=== PATIENT | female | born 1950 | race Caucasian/White ===

== ENCOUNTER 2017-03-01 09:57 | Inpatient (IN) | payer MEDICARE, OTHER ==
[2017-03-01 11:08] LABS: #Basophils 0.1 thou/uL (0.0-0.2); #Eosinphils 0.4 thou/uL (0.0-0.7); #Monocytes 0.8 thou/uL (0.11-0.59); #Neutrophils 6.3 thou/uL (1.40-6.50); %Basophils 1.3 % (0.0-1.0); %Eosinophils 3.6 % (0.0-10.0); %Lymphocytes 28.3 % (21.0-51.0); %Monocytes 7.1 % (0.0-10.0); %Neutrophils 59.8 % (42.0-75.0); Hemoglobin 13.2 g/dL (12.0-16.0); Mean Corpuscular Hemoglobin 31.2 pg (27.0-31.0); Mean Corpuscular Volume 94.5 fl (81.0-99.0); Mean Platelet Volume 7.3 fL (7.4-10.4); Platelet Count 280 thou/uL (130-400); RBC Distribution Width 11.6 % (11.5-14.5); Red Blood Cell (RBC) Count 4.25 mill/uL (4.20-5.40); White Blood Cell (WBC) Count 10.5 thou/uL (4.8-10.8)
--- NOTE | 2017-03-01 11:08 | RAD ---
FRONTAL RADIOGRAPH CHEST: Date: 03/01/17 COMPARISON: 08/13/14. HISTORY: Chest pain, myocardial infarction. FINDINGS: There is stable prominence of the cardiac silhouette. No pneumothorax, pleural fluid, focal consolida tion, or alveolar edema. IMPRESSION: No acute findings. POS: [facility]
[2017-03-01 11:16] LABS: PTT 26.1 SEC (22.9-36.1); Prothrombin Time 13.1 SEC (12.0-14.7)
[2017-03-01 11:36] LABS: ALT (SGPT) 33 U/L (8-55); AST (SGOT) 38 U/L (5-34); Alkaline Phosphatase 55 U/L (40-150); Anion Gap 14 mmol/L (10-20); BUN (Urea Nitrogen) 28 mg/dL (9.8-20.1); Bilirubin, Total 0.4 mg/dL (0.2-1.2); CK (CPK) 111 U/L (29-168); Calc. Creatinine Clearance 0 mL/min (70-130); Calcium 10.3 mg/dL (7.8-10.44); Carbon Dioxide 22 mmol/L (23-31); Chloride 106 mmol/L (98-107); Estimated GFR-MDRD 68; Glucose 89 mg/dL (80-115); Lipase 129 U/L (8-78); Sodium 138 mmol/L (136-145)
[2017-03-01 11:48] LABS: Troponin I 0.793 ng/mL (< 0.028)
[2017-03-01] MEDS ORDERED: Enoxaparin Sodium 100 MG/ML SYRINGE ONE (12:19)
[2017-03-01] MEDS ORDERED: Nitroglycerin 2% Ointment 1 INCH/1 GM Packet ONE (12:19)
[2017-03-01] MEDS ORDERED: Mag-Al 1200 mg/1200 mg/30 ML UDCUP PO PRN (13:37)
[2017-03-01] MEDS ORDERED: Calcium Carbonate 500 MG ChewTAB PO PRN (13:37)
[2017-03-01] MEDS ORDERED: Senokot 8.6 MG TAB PO PRN (13:37)
[2017-03-01] MEDS ORDERED: Ondansetron HCl/PF 4 MG/2 ML Vial IVP PRN (13:37)
[2017-03-01] MEDS ORDERED: Nitroglycerin 0.4 MG TAB (25 Tab Bottle) PO PRN (13:37)
[2017-03-01] MEDS ORDERED: Acetaminophen 325 MG TAB PO PRN (13:37)
[2017-03-01] MEDS ORDERED: Ondansetron ODT 4 MG TAB PO PRN (13:37)
--- NOTE | 2017-03-01 13:37 | PDOC.EVN ---
Event Note - Event Note Event Note: Patient seen and examined. Note dicatated. Full code. DPOA - patient/family
[2017-03-01] MEDS ORDERED: Acetaminophen/Codeine 30-300mg Tablet PO PRN (13:40)
[2017-03-01] MEDS ORDERED: traMADol HCl 50 MG TAB PO PRN (13:40)
[2017-03-01] MEDS ORDERED: hydrALAZINE 20 MG/ML VIAL SLOW IVP PRN (13:40)
--- NOTE | 2017-03-01 13:50 | HP ---
DATE OF ADMISSION: 03/01/2017 PRIMARY CARE PHYSICIAN: Dr. Solis. PRIMARY TREASURY ANALYST: Dr. Gonzalez. CHIEF COMPLAINT: Chest discomfort. HISTORY OF PRESENT ILLNESS: The patient is a 67-year-old female with hypertension, atrial flutter status post ablation, presented to [facility] with chest discomfort. She was subsequently transferred to this facility for hospital admission. The chest discomfort started around 10:30 p.m. while she was at home. It was substernal, moderate in intensity without any radiation. She felt nauseous without any vomiting. No lightheadedness, dizziness, syncope, recent immobilization, travel, cough, shortness of breath, wheezing reported. She is compliant with metoprolol and lisinopril along with Lasix. She is not on aspirin at this time. In the emergency room at [facility], her workup was consistent with non-ST elevation OH with a troponin of 0.3 at 6:35 a.m. Her initial troponin was 0.042 with CK-MB of 1.6. She received aspirin in the emergency room. She also received a dose of Lovenox at this facility. PAST MEDICAL HISTORY: 1. Atrial flutter, status post ablation. 2. Hypertension. 3. Anxiety disorder. 4. History of atrial fibrillation in the past. PAST SURGICAL HISTORY: Ablation x2. ALLERGIES: Patient denies any drug allergies. CURRENT HOME MEDICATIONS: Lasix 40 mg daily, lisinopril 10 mg daily, meloxicam 15 mg daily, and metoprolol tartrate 12.5 mg b.i.d. SOCIAL HISTORY: Patient currently lives at home with her family. No smoking, alcohol or drug use. FAMILY HISTORY: Positive for coronary artery disease. REVIEW OF SYSTEMS: The following complete review of systems was negative, unless otherwise mentioned in the HPI or below: Constitutional: Weight loss or gain, ability to conduct usual activities. Skin: Rash, itching. Eyes: Double vision, pain. ENT/Mouth: Nose bleeding, neck stiffness, pain, tenderness. Cardiovascular: Palpitations, dyspnea on exertion, orthopnea. Respiratory: Shortness of breath, wheezing, cough, hemoptysis, fever or night sweats. Gastrointestinal: Poor appetite, abdominal pain, heartburn, nausea, vomiting, constipation, or diarrhea. Genitourinary: Urgency, frequency, dysuria, nocturia. Musculoskeletal: Pain, swelling. Neurologic/Psychiatric: Anxiety, depression. Allergy/Immunologic: Skin rash, bleeding tendency. PHYSICAL EXAMINATION: VITAL SIGNS: Shows temperature 98.7, respirations 14, pulse rate 57, blood pressure 165/78 with O2 saturation 96% on room air. GENERAL: A 67-year-old female in no apparent distress. No chest discomfort over the last 2-4 hours. HEENT: Head is atraumatic, normocephalic. Sclerae are anicteric. Moist mucous membrane, no oral lesion. NECK: Supple, no JVD appreciated. No carotid bruit. LUNGS: Clear to auscultation bilaterally. HEART: S1 and S2 present. Regular rate and rhythm. No murmurs, rubs or gallops appreciated. ABDOMEN: Soft, nontender, bowel sounds present. EXTREMITIES: Trace edema in bilateral lower extremities. SKIN: Warm and dry. LYMPH NODES: No palpable lymph nodes in the neck. PERIPHERAL VASCULAR: Radial pulses palpable bilaterally. MUSCULOSKELETAL: No joint swelling or tenderness. LABORATORY DATA AND X-RAY FINDINGS: 1. Troponins as discussed above. Sodium was 141, potassium 4.3, chloride 103, bicarbonate 28, BUN 27, creatinine 1.0. 2. Repeat troponin was 0.793 with CK-MB 8.0. 3. EKG by my review showed ST-T wave changes in the lateral leads. 4. Chest x-ray by my review was negative for infiltrate. IMPRESSION AND PLAN: 1. Non-ST elevation myocardial infarction. Telemetry monitoring, s/p Lovenox. Cardiology consult. NPO past MN. Vitals Q4h. Aspirin, Betablockers, ACEI and Statins 2. Hypertension. Will cont Lisinopril/Metoprolol 3. Anxiety disorder. 4. Chronic kidney disease stage 2. 5. History of atrial flutter, status post ablation. 6. History of atrial fibrillation in the past. Plan of care was discussed with the patient and the family in detail, they stated understanding The patient will require 2-3 days for stabilization. MTDD
[2017-03-01] MEDS ORDERED: Communication Order-Pharmacy FS SCH ×2 (17:45→18:15)
--- NOTE | 2017-03-01 18:19 | CON ---
DATE OF CONSULTATION: 03/01/2017 REASON FOR CONSULTATION: Elevated troponin. PRIMARY STUDENT DEVELOPMENT COORDINATOR: Pam Gonzalez M.D. HISTORY OF PRESENT ILLNESS: Ms. Clay is a pleasant 67-year-old woman who has been seen and evaluat ed by Dr. Pam Gonzalez in the past. She recently underwent atrial flutter ablation and was schedule d to see Dr. Nolen. She has had a history of anxiety disorder and hypertension. She awoke from sleep , describing chest pressure and shortness of breath. The pressure was described as band-like around her upper abdomen. No other ameliorating, exacerbating, or precipitating factors present. She has n o previous history of underlying coronary disease. PAST MEDICAL HISTORY: As above. ALLERGIES: None. MEDICATIONS: Lasix, lisinopril, meloxicam, metoprolol. SOCIAL HISTORY: No current tobacco or alcohol use. FAMILY HISTORY: Negative for CAD. REVIEW OF SYSTEMS: Ten-point review of systems is reviewed and is otherwise negative. PHYSICAL EXAMINATION: GENERAL: Patient is a pleasant female who is in no acute distress. The patient appears her stated a ge. VITAL SIGNS: Blood pressure 110/70, pulse 80, respirations 20. NEUROLOGIC: The patient is alert and oriented times 3 with no focal neurologic deficits. HEENT: Sclerae without icterus. Mouth has moist mucous membranes with normal pallor. NECK: No JVD. Carotid upstroke brisk. No bruits bilaterally. LUNGS: Clear to auscultation with unlabored respirations. BACK: No scoliosis or kyphosis. CARDIAC: Regular rate and rhythm with normal S1 and S2. No S3 or S4 noted. No significant rubs, mu rmurs, thrills, or gallops noted throughout the precordium. PMI is not displaced. There is no nora ternal heave. ABDOMEN: Soft, nontender, nondistended. No peritoneal signs present. No hepatosplenomegaly. No ab normal striae. EXTREMITIES: 2+ femoral and 2+ dorsalis pedis pulses. No cyanosis, clubbing, or edema. SKIN: No gross abnormalities. PERTINENT LABORATORY DATA AND IMAGING DATA: Hemoglobin 13.2, CK-MB of 8.0 with a peak troponin 0.793 . EKG: Normal sinus rhythm with nonspecific ST-T wave changes. IMPRESSION: Elevated troponin. RECOMMENDATIONS: Symptoms suggest unstable angina. Her CK-MB is elevated as well as her troponin. At this point, would recommend coronary angiography with possible PCI. I discussed the procedure in full detail with Ms. Clay. The risks of the procedure include but are not limited to the following : , stroke, RI, need for emergency surgery, loss of limb, bleeding, and infection, as well as a reaction to the dye causing kidney failure and needing long-term dialysis. I also discussed the ris ks of PCI to include all of the above including coronary dissection and perforation in addition to ac burns paiute stent thrombosis and restenosis. All questions about the procedure were answered. Given the abo ve, the patient agreed to proceed with coronary angiography and possible PCI. All questions were ans wered. I have discussed the case with Dr. Pam Gonzalez. She was given a dose of Lovenox and prepar e for angiography in a.m.
[2017-03-01] MEDS: Famotidine 20 MG TAB PO SCH (20:40)
[2017-03-01] MEDS: Lisinopril 5 MG TAB PO SCH (20:40)
[2017-03-01] MEDS: Docusate 100 MG CAP PO SCH (20:40)
[2017-03-01] MEDS: Metoprolol Tartrate 25 MG TAB PO SCH (20:41)
[2017-03-01 21:23] VITALS: BMI 39.8
[2017-03-02] MEDS: Sodium Chloride 0.9% 1,000 ML IV SCH ×2 (05:17→16:09)
[2017-03-02] MEDS: Famotidine 20 MG TAB PO SCH ×2 (05:18→20:27)
[2017-03-02] MEDS: Aspirin 325 MG TAB PO SCH (05:18)
[2017-03-02 05:23] LABS: #Basophils 0.1 thou/uL (0.0-0.2); #Eosinphils 0.4 thou/uL (0.0-0.7); #Lymphocytes 2.4 thou/uL (1.20-3.40); #Monocytes 0.7 thou/uL (0.11-0.59); #Neutrophils 4.3 thou/uL (1.40-6.50); %Basophils 1.6 % (0.0-1.0); %Eosinophils 5.3 % (0.0-10.0); %Lymphocytes 30.1 % (21.0-51.0); %Monocytes 8.8 % (0.0-10.0); %Neutrophils 54.2 % (42.0-75.0); Hemoglobin 12.5 g/dL (12.0-16.0); Mean Corpuscular HGB CONC 33.1 g/dL (32.0-36.0); Mean Corpuscular Hemoglobin 31.4 pg (27.0-31.0); Mean Corpuscular Volume 94.8 fl (81.0-99.0); Mean Platelet Volume 7.8 fL (7.4-10.4); Platelet Count 261 thou/uL (130-400); RBC Distribution Width 11.5 % (11.5-14.5); Red Blood Cell (RBC) Count 3.99 mill/uL (4.20-5.40); White Blood Cell (WBC) Count 7.9 thou/uL (4.8-10.8)
[2017-03-02] MEDS ORDERED: Diazepam 5 MG TAB PO SCH (06:00)
[2017-03-02 06:01] LABS: Albumin 3.9 g/dL (3.4-4.8); Anion Gap 11 mmol/L (10-20); BUN (Urea Nitrogen) 25 mg/dL (9.8-20.1); BUN/Creatinine Ratio 28.09; Calc. Creatinine Clearance 105 mL/min (70-130); Calcium 9.5 mg/dL (7.8-10.44); Carbon Dioxide 26 mmol/L (23-31); Cardiac Risk 3.5 (Less than 4.5); Chloride 105 mmol/L (98-107); Cholesterol 181 mg/dl (< 200 Desired); Estimated GFR-MDRD 64; Glucose 96 mg/dL (80-115); HDL Cholesterol 51 mg/dL (>60 Neg Risk); LDL Cholesterol, Calculated 95 mg/dL; Phosphorus 3.6 mg/dL (2.3-4.7); Potassium 4.4 mmol/L (3.5-5.1); Sodium 138 mmol/L (136-145); Triglycerides 174 mg/dL (Less than 150)
[2017-03-02 06:21] LABS: Troponin I 0.779 ng/mL (< 0.028)
[2017-03-02] MEDS: Metoprolol Tartrate 25 MG TAB PO SCH ×2 (09:00→20:27)
[2017-03-02] MEDS ORDERED: Fentanyl 100 MCG/2 ML VIAL ONE (09:18)
[2017-03-02] MEDS ORDERED: Midazolam HCl 2 mg/2 ml Vial ONE (09:18)
[2017-03-02] MEDS ORDERED: Iopamidol 370 76% 100 ML VIAL ONE (09:38)
[2017-03-02] MEDS ORDERED: Nitroglycerin 100MG/250ML BOT 250 ML ONE (09:41)
[2017-03-02] MEDS ORDERED: Nitroglycerin 0.4 MG TAB (25 Tab Bottle) SL PRN (10:12)
[2017-03-02] MEDS ORDERED: traMADol HCl 50 MG TAB PO PRN (10:12)
[2017-03-02] MEDS ORDERED: Acetaminophen/Codeine 30-300mg Tablet PO PRN ×2 (10:12)
[2017-03-02] MEDS ORDERED: Sodium Chloride 0.9% 200 ML IV SCH (10:15)
--- NOTE | 2017-03-02 12:34 | CON ---
DATE OF CONSULTATION: 03/02/2017 REASON FOR CONSULTATION: Narrow complex tachycardia. PHYSICIAN REQUESTING CONSULTATION: Dr. Pam Gonzalez HISTORY OF PRESENT ILLNESS: Marianna Clay is a 67-year-old woman. She is known to the EP Service wit h a remote history of atrial fibrillation and mild to moderate aortic stenosis. She underwent ablati on of her atrial fibrillation several years ago, at least 3. She did require 2 ablative procedures t o be rid of the atrial fibrillation. Since that time she has recently developed tachy palpitations o n a daily basis. She had a monitor placed showing a narrow complex tachycardia at 150 beats a minute . I was asked to see her because of the SVT. This does correlate with symptoms. She underwent hear t catheterization today showing normal coronary anatomy. She does have moderate aortic stenosis, but non-critical. FAMILY HISTORY: Significant for coronary artery disease, hypertension, diabetes. SOCIAL HISTORY: The patient does not smoke, drink or use illicit drugs. REVIEW OF SYSTEMS: CONSTITUTIONAL: No fever, chills, night sweats, or other constitutional findings. HEENT: No change in vision or hearing. NEUROLOGIC: No TIAs, strokes or seizures. PULMONARY: No reactive airway disease, obstructive lung disease, or recurrent pneumonias. GASTROINTESTINAL: No acid peptic disease, melena, or hematochezia. GENITOURINARY: No frequency or dysuria. CARDIOVASCULAR: No claudication. ENDOCRINE: No diabetes or thyroid dysfunction. HEMATOLOGIC: No history of blood dyscrasias. MUSCULOSKELETAL: No arthritis, arthralgias or gout. PSYCHIATRIC: No depression or anxiety. DERMATOLOGIC: No rashes or skin cancer. AUTOIMMUNE: No autoimmune disease. PHYSICAL EXAMINATION: HEENT: Extraocular muscles are intact. Oropharynx is moist. NECK: Supple, no JVD. HEART: Demonstrates a regular rate. There is a 1/6 systolic ejection murmur. LUNGS: Clear. ABDOMEN: Soft. EXTREMITIES: Without edema. SKIN: Warm and dry. NEUROLOGIC EXAM: Nonfocal. VITAL SIGNS: Blood pressure is 130/20, pulse is 88. LABORATORY AND X-RAY FINDINGS: Electrocardiogram demonstrates sinus rhythm, IVCD, but no other abnor malities. MEDICAL DECISION MAKING: I had a 10 minute discussion with Ms. Clay and her family. We talked abo ut all treatment options, her tachycardia is clearly regular. However, with her history of atrial fi brillation and previous ablations it is more likely to be an atrial tachycardia or an atypical flutte r then AV sergio reentry. Because of this, I would not recommend proceeding with an ablation today si nce complex mapping is not available and 3D mapping system is not available. I would arrange for it to be done tomorrow as an inpatient. The patient understands risks, benefits, and alternatives. IMPRESSION: Narrow complex tachycardia, probably in a tach or an atypical flutter, although I cannot exclude AVNRT or AVRT. RECOMMENDATIONS: Proceed with ablation with 3D mapping tomorrow when available.
[2017-03-02 16:01] LABS: #Basophils 0.1 thou/uL (0.0-0.2); #Eosinphils 0.3 thou/uL (0.0-0.7); #Lymphocytes 2.1 thou/uL (1.20-3.40); #Monocytes 0.5 thou/uL (0.11-0.59); %Basophils 1.1 % (0.0-1.0); %Eosinophils 3.8 % (0.0-10.0); %Lymphocytes 30.1 % (21.0-51.0); %Monocytes 6.8 % (0.0-10.0); %Neutrophils 58.2 % (42.0-75.0); Hemoglobin 12.5 g/dL (12.0-16.0); Mean Corpuscular HGB CONC 32.5 g/dL (32.0-36.0); Mean Corpuscular Hemoglobin 30.9 pg (27.0-31.0); Mean Corpuscular Volume 95.2 fl (81.0-99.0); Mean Platelet Volume 7.1 fL (7.4-10.4); Platelet Count 271 thou/uL (130-400); RBC Distribution Width 11.4 % (11.5-14.5); Red Blood Cell (RBC) Count 4.05 mill/uL (4.20-5.40); White Blood Cell (WBC) Count 6.9 thou/uL (4.8-10.8)
[2017-03-02 16:07] LABS: PTT 24.7 SEC (22.9-36.1); Prothrombin Time 12.9 SEC (12.0-14.7)
[2017-03-02] MEDS: Lisinopril 5 MG TAB PO SCH ×2 (16:08→20:27)
[2017-03-02] MEDS: Docusate 100 MG CAP PO SCH ×2 (16:08→20:27)
[2017-03-02 16:22] LABS: Anion Gap 11 mmol/L (10-20); BUN (Urea Nitrogen) 17 mg/dL (9.8-20.1); Calc. Creatinine Clearance 123 mL/min (70-130); Calcium 9.2 mg/dL (7.8-10.44); Carbon Dioxide 23 mmol/L (23-31); Chloride 108 mmol/L (98-107); Estimated GFR-MDRD 76; Glucose 95 mg/dL (80-115); Potassium 4.2 mmol/L (3.5-5.1); Sodium 138 mmol/L (136-145)
--- NOTE | 2017-03-02 18:57 | PDOC.PN ---
- Subjective Encounter Start Date: 03/02/17 Encounter Start Time: 15:30 Patient seen and examined. No new complaints. s/p Cath - negative. No overnight events - Objective Resuscitation Status: Resuscitation Status FULL:Full Resuscitation MAR Reviewed: Yes Vital Signs & Weight: Vital Signs (12 hours) Temp Pulse Pulse Pulse Resp BP BP 03/02/17 15:18 98.3 F 61 18 03/02/17 14:39 62 66 176/81 H 03/02/17 12:30 97.8 F 63 18 03/02/17 10:31 61 18 124/59 L 03/02/17 08:03 97.8 F 63 18 BP BP BP Pulse Ox Pulse Ox Pulse Ox 03/02/17 15:18 179/91 H 96 03/02/17 14:39 184/84 H 96 97 03/02/17 12:30 146/65 H 95 03/02/17 10:31 124/59 L 97 03/02/17 08:03 97 I&O: 03/01/17 03/02/17 03/03/17 06:59 06:59 06:59 Intake Total 1700 Balance 1700 Result Diagrams: 03/02/17 15:51 03/02/17 15:51 EKG Reviewed by me: Yes (Tele SR) Phys Exam - Physical Examination Constitutional: NAD Respiratory: no wheezing, no rhonchi Cardiovascular: RRR, no rub Gastrointestinal: soft, non-tender, positive bowel sounds Musculoskeletal: no edema Neurological: moves all 4 limbs Psychiatric: A&O x 3 Dx/Plan - Plan DVT proph w/SCDs IMPRESSION: 1. SVT (Pt had SVT on recent Event monitor) 2. Elevated troponins due to #1 (NSTEMI ruled out) 2. Hypertension. on Lisinopril/Metoprolol 3. Anxiety disorder. 4. Chronic kidney disease stage 2/History of atrial flutter, status post ablation x 2/History of atrial fibrillation in the past/HLD/Obesity BMI 39.8 PLAN * EP consulted * Ablation in AM * DC Cardiac Rehab * Cont to monitor * Cont current meds as below * AM labs Review of Systems - Review of Systems Respiratory: negative: Cough, Dry, Shortness of Breath, Hemoptysis, SOB with Excertion, Pleuritic Pain, Sputum, Wheezing Cardiovascular: negative: chest pain, palpitations, orthopnea, paroxysmal nocturnal dyspnea, edema, light headedness Gastrointestinal: negative: Nausea, Vomiting, Abdominal Pain, Diarrhea, Constipation, Melena, Hematochezia - Medications/Allergies Allergies/Adverse Reactions: Allergies Allergy/AdvReac Type Severity Reaction Status Date / Time No Known Allergies Allergy Verified 03/01/17 21:22 Medications: Current Medications Acetaminophen (Tylenol) 650 mg PO Q4H PRN PRN Reason: Headache/Fever or Pain Acetaminophen/Codeine Phosphate (Tylenol #3) 1 tab PO Q4H PRN PRN Reason: Mild Pain (1-3) Acetaminophen/Codeine Phosphate (Tylenol #3) 2 tab PO Q4H PRN PRN Reason: Moderate Pain (4-6) Al Hydroxide/Mg Hydroxide (Maalox) 30 ml PO Q6H PRN PRN Reason: Heartburn or Indigestion Aspirin (Aspirin) 325 mg PO DAILY [facility] Last Admin: 03/02/17 05:18 Dose: 325 mg Calcium Carbonate (Tums) 1,000 mg PO Q4H PRN PRN Reason: Heartburn or Indigestion Diazepam (Valium) 5 mg PO WILLCALL [facility] Stop: 03/02/17 20:00 Last Admin: 03/02/17 08:29 Dose: 5 mg Docusate Sodium (Colace) 100 mg PO BID [facility] Last Admin: 03/02/17 16:08 Dose: 100 mg Famotidine (Pepcid) 20 mg PO BID [facility] Last Admin: 03/02/17 05:18 Dose: 20 mg Hydralazine HCl (Apresoline) 10 mg SLOW IVP Q4H PRN PRN Reason: SBP Greater Than 180 Lisinopril (Zestril) 5 mg PO BID [facility] Last Admin: 03/02/17 16:08 Dose: 5 mg Metoprolol Tartrate (Lopressor) 12.5 mg PO BID [facility] Last Admin: 03/02/17 09:00 Dose: Not Given Nitroglycerin (Nitrostat) 0.4 mg SL Q5MIN PRN PRN Reason: Chest Pain Ondansetron HCl (Zofran Odt) 4 mg PO Q6H PRN PRN Reason: Nausea/Vomiting Ondansetron HCl (Zofran) 4 mg IVP Q6H PRN PRN Reason: Nausea/Vomiting Senna (Senokot) 2 tab PO HSPRN PRN PRN Reason: Constipation Sodium Chloride (Flush - Normal Saline) 10 ml IVF PRN PRN PRN Reason: Saline Flush Tramadol HCl (Ultram) 50 mg PO Q6H PRN PRN Reason: Moderate Pain (4-6) Last Admin: 03/02/17 12:10 Dose: 50 mg
[2017-03-03 05:04] LABS: #Basophils 0.1 thou/uL (0.0-0.2); #Eosinphils 0.3 thou/uL (0.0-0.7); #Lymphocytes 2.5 thou/uL (1.20-3.40); #Monocytes 0.5 thou/uL (0.11-0.59); #Neutrophils 3.9 thou/uL (1.40-6.50); %Basophils 1.5 % (0.0-1.0); %Eosinophils 4.1 % (0.0-10.0); %Lymphocytes 34.4 % (21.0-51.0); %Monocytes 7.3 % (0.0-10.0); %Neutrophils 52.7 % (42.0-75.0); Hemoglobin 12.3 g/dL (12.0-16.0); Mean Corpuscular HGB CONC 32.9 g/dL (32.0-36.0); Mean Corpuscular Hemoglobin 31.3 pg (27.0-31.0); Mean Corpuscular Volume 95.2 fl (81.0-99.0); Mean Platelet Volume 7.5 fL (7.4-10.4); Platelet Count 261 thou/uL (130-400); RBC Distribution Width 11.6 % (11.5-14.5); Red Blood Cell (RBC) Count 3.92 mill/uL (4.20-5.40); White Blood Cell (WBC) Count 7.4 thou/uL (4.8-10.8)
[2017-03-03 05:07] LABS: Anion Gap 10 mmol/L (10-20); BUN (Urea Nitrogen) 15 mg/dL (9.8-20.1); Calc. Creatinine Clearance 119 mL/min (70-130); Calcium 9.2 mg/dL (7.8-10.44); Carbon Dioxide 27 mmol/L (23-31); Chloride 105 mmol/L (98-107); Estimated GFR-MDRD 74; Glucose 99 mg/dL (80-115); Magnesium 1.9 mg/dL (1.6-2.6); Potassium 4.2 mmol/L (3.5-5.1); Sodium 138 mmol/L (136-145)
[2017-03-03] MEDS: Metoprolol Tartrate 25 MG TAB PO SCH ×2 (05:43→21:13)
[2017-03-03] MEDS ORDERED: Heparin 10,000 UNITS/1 ML VIAL ONE ×2 (09:34→10:19)
[2017-03-03] MEDS ORDERED: Fentanyl 100 MCG/2 ML VIAL ONE (09:52)
[2017-03-03] MEDS ORDERED: Midazolam HCl 2 mg/2 ml Vial ONE (09:52)
[2017-03-03] MEDS ORDERED: Propofol 500 MG/50 ML VIAL ONE (10:00)
[2017-03-03] MEDS ORDERED: Protamine Sulfate 50 MG/5 ML VIAL ONE ×2 (10:19→16:56)
[2017-03-03] MEDS ORDERED: Furosemide 40 MG/4 ML VIAL ONE (10:19)
[2017-03-03] MEDS ORDERED: Phenylephrine 10 MG/NS 250 ML 250 ML ONE (10:19)
[2017-03-03] MEDS ORDERED: Isoproterenol 0.2 MG/1 ML AMP ONE (11:26)
[2017-03-03] MEDS ORDERED: HYDROmorphone 2 MG/ML VIAL SLOW IVP PRN (12:21)
[2017-03-03] MEDS ORDERED: Promethazine HCl 25 MG/ML VIAL SLOW IVP PRN (12:21)
[2017-03-03] MEDS ORDERED: Morphine Sulfate 2 MG/ML SYRINGE SLOW IVP PRN (12:21)
[2017-03-03] MEDS ORDERED: Ondansetron HCl/PF 4 MG/2 ML Vial IVP PRN ×2 (12:21→13:48)
[2017-03-03] MEDS ORDERED: Meperidine HCl/PF 25 MG/ML VIAL SLOW IVP PRN (12:21)
--- NOTE | 2017-03-03 12:24 | OP ---
PROCEDURE NOTE PROCEDURE: Electrophysiologic study, radiofrequency ablation for SVT. PREOPERATIVE DIAGNOSES: Supraventricular tachycardia and atrial fibrillation. PROCEDURE DETAILS: The patient came to the EP lab in the postabsorptive state. Informed consent was obtained. A timeout was called. The patient was sedated by a member of the Anesthesia staff. Once patient was adequately sedated, the right and left femoral regions were prepped and draped in the [facility] sterile fashion. Using modified Seldinger technique and with ultrasound access, access was obtai keith x2 in the right femoral vein and x1 in the left femoral vein and x1 in the right internal jugular vein. A 20-pole duo-deca catheter was advanced in the right internal jugular vein and placed with t he distal 10 poles in the coronary sinus for left atrial pacing and recording, and a 10-Stateless intrac ardiac echo catheter was advanced in the left femoral vein and placed into the right atrium for intra operative imaging and guidance. Pacing in the ventricle demonstrated no evidence of VA conduction, a nd therefore, given her history of atrial fibrillation, the clinical arrhythmia was felt to be either atrial tachycardia or atypical atrial flutter due to post RF ablation. As such, transseptal punctur e x2 was performed and a 10-pole circular mapping catheter was advanced into the left atrium as well as an ablation catheter. The ablation catheter was an STSF Carto catheter. A 3-dimensional geometry was generated with the Carto system, which included voltage mapping. It appeared that the left comm on pulmonary vein, which included a left upper and left lower pulmonary veins, were completely isolat ed over the posterior wall, appeared to have recovered from the prior ablation, as did the right uppe r pulmonary vein and the right lower pulmonary vein; therefore, the pulmonary veins were re-isolated on the right side with the right upper pulmonary vein ultimately re-isolating in the posterior marva and the right lower pulmonary vein ultimately re-isolating in the anterior aspect of the right infer ior pulmonary vein. Following this, radiofrequency ablation was delivered in the area of the posteri or wall to re-isolate the posterior wall as well as some areas of fractionation near the ridge betwee n the left upper pulmonary vein and the left atrial appendage. Isoproterenol bolus was given at 5 mc g given her history of aortic stenosis and no arrhythmias could be elicited. Following this, pacing at rapid rates from the coronary sinus and left atrial appendage and from the right atrium down to a cycle length of approximately 200 milliseconds failed to induce any sustained atrial arrhythmias with exception of atrial fibrillation, which was induced. The patient was cardioverted from atrial fibri llation, and therefore, because of lack of inducibility of any sustained atrial arrhythmias and succe ss in re-isolation of the pulmonary veins, the catheters were withdrawn and protamine was given. The HV interval was 46 milliseconds. The catheters were removed. Examination of the heart demonstrated no pericardial effusion. Sheaths were removed and hemostasis was obtained with manual pressure. Th e patient was awoken from anesthetic without any difficulty. POSTOPERATIVE DIAGNOSES: Supraventricular tachycardia and atrial fibrillation. PROCEDURE PERFORMED: Pulmonary vein isolation, drug infusion, 3-dimensional electro-anatomical mappi ng, CS and LA recording, LV pacing and recording. Additional ablation for atrial fibrillation and in duction attempt, intracardiac echo, and transseptal puncture. CONCLUSIONS: 1. Re-isolation of right-sided upper and lower pulmonary veins. 2. Prior left-sided pulmonary veins continue to be isolated. 3. Re-isolation of the posterior wall. 4. No inducible sustained atrial tachycardia or atrial flutter. 5. Easily inducible atrial fibrillation with aggressive atrial pacing. RECOMMENDATIONS: The patient will be at bed rest. She will take Eliquis for at least 3 months and f raphaellow up with Electrophysiology after that.
[2017-03-03] MEDS ORDERED: diphenhydrAMINE 25 MG CAP PO PRN (13:48)
[2017-03-03] MEDS ORDERED: Nitroglycerin 0.4 MG TAB (25 Tab Bottle) SL PRN (13:48)
[2017-03-03] MEDS ORDERED: traMADol HCl 50 MG TAB PO PRN (13:48)
[2017-03-03] MEDS ORDERED: Mag-Al 1200 mg/1200 mg/30 ML UDCUP PO PRN (13:48)
[2017-03-03] MEDS ORDERED: Silver Sulfadiazine 1% Cream 50 GM JAR TOP PRN (13:48)
[2017-03-03] MEDS ORDERED: Acetaminophen 325 MG TAB PO PRN (13:48)
[2017-03-03] MEDS ORDERED: Bisacodyl 5 MG TAB PO PRN (13:48)
[2017-03-03] MEDS ORDERED: Temazepam 15 MG CAP PO PRN (13:48)
[2017-03-03] MEDS ORDERED: Bisacodyl 10 MG SUPP PR PRN (13:48)
[2017-03-03] MEDS: Lisinopril 5 MG TAB PO SCH ×2 (13:55→21:13)
[2017-03-03] MEDS: Famotidine 20 MG TAB PO SCH ×2 (13:56→21:13)
[2017-03-03] MEDS: Aspirin 325 MG TAB PO SCH (13:58)
[2017-03-03] MEDS: Docusate 100 MG CAP PO SCH ×2 (13:59→21:13)
[2017-03-03] MEDS ORDERED: Ondansetron HCl/PF 4 MG/2 ML Vial ONE (16:56)
[2017-03-03] MEDS ORDERED: PHENYLEPHRINE-NS 100 MCG/ML 10 ML SYRINGE ONE (16:56)
[2017-03-03] MEDS ORDERED: Glycopyrrolate 0.2 MG/ML 5 ML SYRINGE ONE (16:56)
[2017-03-03] MEDS ORDERED: Dexamethasone 20 MG/5 ML VIAL ONE (16:56)
[2017-03-03] MEDS ORDERED: PROPOFOL 200 MG/20 ML VIAL ONE (16:56)
[2017-03-03] MEDS ORDERED: Heparin 30,000 units/30 ml VIAL ONE (16:56)
--- NOTE | 2017-03-03 21:33 | PDOC.PN ---
- Subjective Encounter Start Date: 03/03/17 Encounter Start Time: 17:30 Patient seen and examined. No new complaints. No overnight events. s/p Ablation - Objective Resuscitation Status: Resuscitation Status FULL:Full Resuscitation MAR Reviewed: Yes Vital Signs & Weight: Vital Signs (12 hours) Temp Pulse Resp BP BP Pulse Ox 03/03/17 21:13 55 L 144/76 H 03/03/17 13:55 55 L 144/76 H 03/03/17 13:54 98.0 F 61 18 132/71 95 03/03/17 13:40 98 F 55 L 16 95 03/03/17 13:20 98.2 F 66 16 131/72 131/72 95 Weight Weight 230 lb 1.6 oz I&O: 03/02/17 03/03/17 03/04/17 06:59 06:59 06:59 Intake Total 2060 240 Output Total 800 1100 Balance 1260 -860 Result Diagrams: 03/03/17 04:19 03/03/17 04:19 Phys Exam - Physical Examination Constitutional: NAD Respiratory: no wheezing, no rhonchi Cardiovascular: RRR, no rub Gastrointestinal: soft, non-tender, positive bowel sounds Musculoskeletal: no edema Neurological: moves all 4 limbs Dx/Plan - Plan IMPRESSION: 1. SVT/Afib (Pt had SVT on recent Event monitor) 2. Elevated troponins due to #1 (NSTEMI ruled out) 2. Hypertension. on Lisinopril/Metoprolol 3. Anxiety disorder. 4. Chronic kidney disease stage 2/History of atrial flutter, status post ablation x 2/History of atrial fibrillation in the past/HLD/Obesity BMI 39.8 PLAN * s/p ablation * Start Eliquis per EP recommendation for 3 weeks - Risk discussed - Patient stated understanding * Cont to monitor * Cont current meds as below * DC in AM if ok with Cardio/EP Review of Systems - Review of Systems Respiratory: negative: Cough, Dry, Shortness of Breath, Hemoptysis, SOB with Excertion, Pleuritic Pain, Sputum, Wheezing Cardiovascular: negative: chest pain, palpitations, orthopnea, paroxysmal nocturnal dyspnea, edema, light headedness - Medications/Allergies Allergies/Adverse Reactions: Allergies Allergy/AdvReac Type Severity Reaction Status Date / Time No Known Allergies Allergy Verified 03/01/17 21:22 Medications: Current Medications Acetaminophen (Tylenol) 650 mg PO Q4H PRN PRN Reason: Mild Pain 1-3 Last Admin: 03/03/17 21:14 Dose: 650 mg Acetaminophen/Codeine Phosphate (Tylenol #3) 1 tab PO Q4H PRN PRN Reason: Mild Pain (1-3) Acetaminophen/Codeine Phosphate (Tylenol #3) 2 tab PO Q4H PRN PRN Reason: Moderate Pain (4-6) Al Hydroxide/Mg Hydroxide (Maalox) 15 ml PO Q4H PRN PRN Reason: Heartburn or Indigestion Albuterol/Ipratropium (Duoneb) 3 ml NEB [id number] PRN PRN Reason: SOB &/or Wheezing Aspirin (Aspirin) 325 mg PO DAILY [facility] Last Admin: 03/03/17 13:58 Dose: 325 mg Bisacodyl (Dulcolax) 5 mg PO DAILYPRN PRN PRN Reason: CONSTIAPT Last Admin: 03/03/17 21:13 Dose: 5 mg Bisacodyl (Dulcolax) 10 mg MO DAILYPRN PRN PRN Reason: Constipation Calcium Carbonate (Tums) 1,000 mg PO Q4H PRN PRN Reason: Heartburn or Indigestion Diphenhydramine HCl (Benadryl) 25 mg PO Q6H PRN PRN Reason: Itching Docusate Sodium (Colace) 100 mg PO BID [facility] Last Admin: 03/03/17 21:13 Dose: 100 mg Famotidine (Pepcid) 20 mg PO BID [facility] Last Admin: 03/03/17 21:13 Dose: 20 mg Hydralazine HCl (Apresoline) 10 mg SLOW IVP Q4H PRN PRN Reason: SBP Greater Than 180 Lisinopril (Zestril) 5 mg PO BID [facility] Last Admin: 03/03/17 21:13 Dose: 5 mg Metoprolol Tartrate (Lopressor) 12.5 mg PO BID [facility] Last Admin: 03/03/17 21:13 Dose: 12.5 mg Nitroglycerin (Nitrostat) 0.4 mg SL Q5MIN PRN PRN Reason: Chest Pain Ondansetron HCl (Zofran Odt) 4 mg PO Q6H PRN PRN Reason: Nausea/Vomiting Ondansetron HCl (Zofran) 4 mg IVP Q6H PRN PRN Reason: Nausea/Vomiting Senna (Senokot) 2 tab PO HSPRN PRN PRN Reason: Constipation Silver Sulfadiazine (Silvadene) 0 gm TOP Q12H PRN PRN Reason: Rash/Topical Irritation Sodium Chloride (Flush - Normal Saline) 10 ml IVF PRN PRN PRN Reason: Saline Flush Temazepam (Restoril) 15 mg PO HSPRN PRN PRN Reason: Insomnia Tramadol HCl (Ultram) 50 mg PO Q4H PRN PRN Reason: FOR MODERATE PAIN 4-6
[2017-03-04 05:44] LABS: #Basophils 0.1 thou/uL (0.0-0.2); #Eosinphils 0.1 thou/uL (0.0-0.7); #Lymphocytes 2.4 thou/uL (1.20-3.40); #Monocytes 0.7 thou/uL (0.11-0.59); #Neutrophils 7.8 thou/uL (1.40-6.50); %Basophils 0.5 % (0.0-1.0); %Eosinophils 0.5 % (0.0-10.0); %Monocytes 6.1 % (0.0-10.0); %Neutrophils 70.9 % (42.0-75.0); Hemoglobin 11.9 g/dL (12.0-16.0); Mean Corpuscular HGB CONC 34.4 g/dL (32.0-36.0); Mean Corpuscular Hemoglobin 32.6 pg (27.0-31.0); Mean Corpuscular Volume 94.8 fl (81.0-99.0); Mean Platelet Volume 7.6 fL (7.4-10.4); Platelet Count 264 thou/uL (130-400); RBC Distribution Width 11.3 % (11.5-14.5); Red Blood Cell (RBC) Count 3.65 mill/uL (4.20-5.40)
[2017-03-04 05:55] LABS: Anion Gap 9 mmol/L (10-20); BUN (Urea Nitrogen) 13 mg/dL (9.8-20.1); Calc. Creatinine Clearance 113 mL/min (70-130); Carbon Dioxide 25 mmol/L (23-31); Chloride 108 mmol/L (98-107); Estimated GFR-MDRD 71; Glucose 115 mg/dL (80-115); Potassium 4.2 mmol/L (3.5-5.1); Sodium 138 mmol/L (136-145)
[2017-03-04] MEDS: Aspirin 325 MG TAB PO SCH (08:23)
[2017-03-04] MEDS: Docusate 100 MG CAP PO SCH (08:23)
[2017-03-04] MEDS: Metoprolol Tartrate 25 MG TAB PO SCH (08:23)
[2017-03-04] MEDS: Famotidine 20 MG TAB PO SCH (08:23)
[2017-03-04] MEDS: Lisinopril 5 MG TAB PO SCH (08:24)
[2017-03-04] MEDS ORDERED: Apixaban 5 MG TAB PO SCH (09:00)
--- NOTE | 2017-03-04 11:19 | PDOC.PN ---
- Subjective Encounter Start Date: 03/04/17 Encounter Start Time: 07:30 -: old records requested/rev Patient seen and examined. No new complaints. No overnight events - Objective Resuscitation Status: Resuscitation Status FULL:Full Resuscitation MAR Reviewed: Yes Vital Signs & Weight: Vital Signs (12 hours) Temp Pulse Resp BP BP Pulse Ox 03/04/17 08:24 57 L 126/67 03/04/17 07:25 97.5 F L 57 L 18 95 03/04/17 07:16 95 03/04/17 07:12 97.5 F L 57 L 18 126/67 95 03/04/17 04:10 94 L 03/04/17 04:00 97.8 F 61 20 121/60 96 03/04/17 00:00 98.7 F 62 18 127/63 94 L Weight Weight 227 lb I&O: 03/03/17 03/04/17 03/05/17 06:59 06:59 06:59 Intake Total 2060 720 Output Total 800 2100 Balance 1260 -1380 Result Diagrams: 03/04/17 05:26 03/04/17 05:26 EKG Reviewed by me: Yes Phys Exam - Physical Examination Constitutional: NAD HEENT: PERRLA, moist MMs, sclera anicteric Neck: no JVD, supple Respiratory: no wheezing, no rales, no rhonchi Cardiovascular: RRR, no significant murmur, no rub Gastrointestinal: soft, non-tender, no distention, positive bowel sounds Musculoskeletal: no edema, pulses present Neurological: non-focal, normal sensation Psychiatric: normal affect, A&O x 3 Skin: no rash, normal turgor Dx/Plan (1) Non-ST elevation myocardial infarction (NSTEMI), type 2 Code(s): I21.A1 - MYOCARDIAL INFARCTION TYPE 2 Status: Acute (2) S/P radiofrequency ablation operation for arrhythmia Code(s): Z98.890 - OTHER SPECIFIED POSTPROCEDURAL STATES; Z86.79 - PERSONAL HISTORY OF OTHER DISEASES OF THE CIRCULATORY SYSTEM Status: Acute (3) SVT (supraventricular tachycardia) Code(s): I47.1 - SUPRAVENTRICULAR TACHYCARDIA Status: Acute (4) Dyslipidemia Code(s): E78.5 - HYPERLIPIDEMIA, UNSPECIFIED Status: Chronic (5) Hypertension Code(s): I10 - ESSENTIAL (PRIMARY) HYPERTENSION Status: Chronic (6) Obesity (BMI 30-39.9) Code(s): E66.9 - OBESITY, UNSPECIFIED Status: Chronic - Plan cont current plan of care, plan discussed w/ family * medication reviewed as below * symptomatic treatment * see discharge michlele. Review of Systems - Review of Systems ENT: negative: Ear Pain, Ear Discharge, Nose Pain, Nose Discharge, Nose Congestion, Mouth Pain, Mouth Swelling, Throat Pain, Throat Swelling, Other Respiratory: negative: Cough, Dry, Shortness of Breath, Hemoptysis, SOB with Excertion, Pleuritic Pain, Sputum, Wheezing Cardiovascular: negative: chest pain, palpitations, orthopnea, paroxysmal nocturnal dyspnea, edema, light headedness, other Gastrointestinal: negative: Nausea, Vomiting, Abdominal Pain, Diarrhea, Constipation, Melena, Hematochezia, Other Genitourinary: negative: Dysuria, Frequency, Incontinence, Hematuria, Retention , Other Musculoskeletal: negative: Neck Pain, Shoulder Pain, Arm Pain, Back Pain, Hand Pain, Leg Pain, Foot Pain, Other Skin: negative: Rash, Lesions, Joe, Bruising, Other - Medications/Allergies Allergies/Adverse Reactions: Allergies Allergy/AdvReac Type Severity Reaction Status Date / Time No Known Allergies Allergy Verified 03/01/17 21:22 Medications: Current Medications Acetaminophen (Tylenol) 650 mg PO Q4H PRN PRN Reason: Mild Pain 1-3 Last Admin: 03/03/17 21:14 Dose: 650 mg Acetaminophen/Codeine Phosphate (Tylenol #3) 1 tab PO Q4H PRN PRN Reason: Mild Pain (1-3) Acetaminophen/Codeine Phosphate (Tylenol #3) 2 tab PO Q4H PRN PRN Reason: Moderate Pain (4-6) Al Hydroxide/Mg Hydroxide (Maalox) 15 ml PO Q4H PRN PRN Reason: Heartburn or Indigestion Albuterol/Ipratropium (Duoneb) 3 ml NEB [id number] PRN PRN Reason: SOB &/or Wheezing Apixaban (Eliquis) 5 mg PO BID [facility] Last Admin: 03/04/17 08:23 Dose: 5 mg Aspirin (Aspirin) 325 mg PO DAILY [facility] Last Admin: 03/04/17 08:23 Dose: 325 mg Bisacodyl (Dulcolax) 5 mg PO DAILYPRN PRN PRN Reason: CONSTIAPT Last Admin: 03/03/17 21:13 Dose: 5 mg Bisacodyl (Dulcolax) 10 mg [place] DAILYPRN PRN PRN Reason: Constipation Calcium Carbonate (Tums) 1,000 mg PO Q4H PRN PRN Reason: Heartburn or Indigestion Diphenhydramine HCl (Benadryl) 25 mg PO Q6H PRN PRN Reason: Itching Docusate Sodium (Colace) 100 mg PO BID [facility] Last Admin: 03/04/17 08:23 Dose: 100 mg Famotidine (Pepcid) 20 mg PO BID [facility] Last Admin: 03/04/17 08:23 Dose: 20 mg Hydralazine HCl (Apresoline) 10 mg SLOW IVP Q4H PRN PRN Reason: SBP Greater Than 180 Lisinopril (Zestril) 5 mg PO BID [facility] Last Admin: 03/04/17 08:24 Dose: 5 mg Metoprolol Tartrate (Lopressor) 12.5 mg PO BID [facility] Last Admin: 03/04/17 08:23 Dose: 12.5 mg Nitroglycerin (Nitrostat) 0.4 mg SL Q5MIN PRN PRN Reason: Chest Pain Ondansetron HCl (Zofran Odt) 4 mg PO Q6H PRN PRN Reason: Nausea/Vomiting Ondansetron HCl (Zofran) 4 mg IVP Q6H PRN PRN Reason: Nausea/Vomiting Senna (Senokot) 2 tab PO HSPRN PRN PRN Reason: Constipation Silver Sulfadiazine (Silvadene) 0 gm TOP Q12H PRN PRN Reason: Rash/Topical Irritation Sodium Chloride (Flush - Normal Saline) 10 ml IVF PRN PRN PRN Reason: Saline Flush Last Admin: 03/04/17 08:22 Dose: 10 ml Temazepam (Restoril) 15 mg PO HSPRN PRN PRN Reason: Insomnia Tramadol HCl (Ultram) 50 mg PO Q4H PRN PRN Reason: FOR MODERATE PAIN 4-6
--- NOTE | 2017-03-04 12:06 | DIS ---
PRIMARY CARE PHYSICIAN: Dr. Jonny Solis. DATE OF ADMISSION: 03/01/2017 DATE OF DISCHARGE: 03/04/2017 DISCHARGE DISPOSITION: Home. PRIMARY DISCHARGE DIAGNOSES: 1. Supraventricular tachycardia. 2. Non-ST elevation myocardial infarction due to demand ischemia type 2, status post radiofrequency ablation for supraventricular tachycardia. SECONDARY DISCHARGE DIAGNOSES: Dyslipidemia, hypertension, obesity. PRIMARY PROCEDURE/OPERATION: Radiofrequency ablation, procedure was performed by Dr. Jam Byrd. Cardiac catheterization was performed by Dr. Ceballos and which was normal. RADIOLOGICAL INVESTIGATION: Chest x-ray normal. SIGNIFICANT LABORATORY DATA: Hemoglobin 11.9. INR 1.0. Creatinine 0.81, troponin 0.779. LDL 95. DISCHARGE MEDICATIONS: Eliquis 5 mg p.o. b.i.d., aspirin 81 mg p.o. daily, Lipitor 10 mg p.o. daily, Lasix 40 mg p.o. daily p.r.n., lisinopril 10 mg p.o. daily, and metoprolol 12.5 mg p.o. b.i.d. CONTRAINDICATIONS: None. CODE STATUS: FULL CODE. INPATIENT CONSULTANTS: Dr. Ceballos was consulted, who did cardiac catheterization and Dr. Gaston saavedra was consulted for electrophysiology study and radiofrequency ablation. DISCHARGE PLAN: Post hospital, the patient will follow up with Dr. Irma Fuller primary care physici an as well as Cardiology as instructed. HOSPITAL COURSE: A 67-year-old female, who was admitted by Dr. Akira Ross on 03/01/2017, please see his H&P for further details. The patient was admitted for chest discomfort. She was found with sig nificantly abnormal troponin. She has non-ST elevation UT, which was related with type 2. The patie nt was also found with SVT, which was treated with radiofrequency ablation. While in hospital, Cardiology did cardiac catheterization, which was normal. Patient had successful radiofrequency ablation for SVT. Electrophysiology is recommended anticoagulation therapy for 3 week s. For her slightly elevated cholesterol, we started Lipitor therapy. The rest of medication was co ntinued as per previous. The patient is seen and examined at bedside today. Please see my progress note from today for further details. If Cardiology okay, then we will consider discharging her home later on today.
[2017-03-04 15:39] VITALS: BP 156/73; TEMP 98.1
--- NOTE | 2017-03-04 16:58 | ULT ---
CAROTID ULTRASOUND: 03/04/17 COMPARISON: None. HISTORY: Right neck swelling after heart catheterization. TECHNIQUE: Multiplanar church scale and color doppler images were obtained in a carotid ultrasound. Spectral alok sis of the doppler waveforms were performed. This exam is limited. FINDINGS: No significant plaque is seen in either common or internal carotid artery. The doppler waveforms are normal bilaterally. Peak systolic velocity in the right ICA is 72 cm/s. Peak systolic velocity in the right CCA is 89 cm/ s. The right ICA/CCA ratio is 0.8. Peak systolic velocity in the left ICA is 81 cm/s. Peak systolic velocity in the left CCA is 97 cm/s. The left ICA/CCA ratio is 0.8. The left vertebral artery demonstrates antegrade flow. The right vertebral artery was not visualized. IMPRESSION: No evidence of hemodynamically significant stenosis. POS: [facility]
--- NOTE | 2017-03-10 19:01 | PQF ---
MADHAVI CHAVEZ SALIM NOORJIBHAI MD [id number] CLINICAL DOCUMENTATION CLARIFICATION FORM: POST DISCHARGE Addendum to original discharge summary date: _NSTEMI type-2 due to demand ischemia Late entry note date: _03/11/17 MADHAVI CHAVEZ [id number] MG RAMIREZ MD PLEASE DOCUMENT YOUR RESPONSE BELOW PLEASE FAX RESPONSE BACK TO [phone] YOUR INPUT IS NEEDED TO CORRECTLY CODE A DIAGNOSIS FOR YOUR PATIENT. DATE: 03/10/2017 ATTN: CORINNE HAN Please exercise your independent, professional judgment in responding to the clarification form. Clinical indicators are provided on the bottom of this form for your review Please check appropriate box(s) to clarify if the following diagnosis has been ruled in our ruled out: Non-ST elevation myocardial infarction due to demand ischemia type 2 [ x ] Ruled in diagnosis [ ] Continue to treat [ ] Resolved [ ] Ruled out diagnosis [ ] Cannot rule out diagnosis [ ] Other diagnosis [ ] Unable to determine In addition, please specify: Present on Admission (POA): [ x ] Yes [ ] No [ ] Unable to determine For continuity of documentation, please document condition throughout progress notes and discharge summary. Thank You. CLINICAL INDICATORS - SIGNS / SYMPTOMS / LABS DISCHARGE SUMMARY PRIMARY DISCHARGE DIAGNOSES: Non-ST elevation myocardial infarction due to demand ischemia type 2 H&P HISTORY OF PRESENT ILLNESS: In the emergency room at [place], her workup was consistent with non-ST elevation ME with a troponin of 0.3 at6:35am. Her initial troponin was 0.042 with CK-MB of 1.6. She received aspirin in the emergency room. She also received a dose of Lovenox at this facility. LABORATORY DATA: Repeat troponin was 0.793 with CK-MB 8.0, EKG by my review showed ST-T wave changes in the lateral leads. IMPRESSION AND PLAN: Non-ST elevation myocardial infarction. Telemetry monitoring, s/p Lovenox. Cardiology consult. NPO past MN. Vitals Q4h. Aspirin, Betablockers, ACEI and Statins. PN 03/03: Elevated troponins due to SVT/Afib (NSTEMI ruled out) RISK FACTORS SVT Afib Aflutter TREATMENTS Telemetry monitoring s/p Lovenox Cardiology consult NPO past MN Vitals Q4h Aspirin, Betablockers, ACEI and Statins. (This form is maintained as a part of the permanent medical record) 2014 [employer] All Rights Reserved Woody [email or web address] [phone] MTDD
--- NOTE | 2017-03-19 22:09 | EKG ---
Test Reason : Blood Pressure : / mmHG Vent. Rate : 052 BPM Atrial Rate : 052 BPM P-R Int : 190 ms QRS Dur : 106 ms QT Int : 468 ms P-R-T Axes : 053 -04 086 degrees QTc Int : 435 ms Sinus bradycardia Possible Lateral infarct , age undetermined Abnormal ECG Confirmed by SIMONA GRIFFIN, SHYAM ([id number]), business editor TERRANCE LIVINGSTON ([id number]) on 03/19/2017 10:08:34 PM Referred By: Confirmed By:SHYAM JARVIS MD
--- NOTE | 2017-03-25 16:43 | EKG ---
Test Reason : PREOP Blood Pressure : / mmHG Vent. Rate : 060 BPM Atrial Rate : 060 BPM P-R Int : 188 ms QRS Dur : 104 ms QT Int : 462 ms P-R-T Axes : 048 -09 062 degrees QTc Int : 462 ms Normal sinus rhythm Possible Lateral infarct (cited on or before 01-MAR-2017) Abnormal ECG When compared with ECG of 01-MAR-2017 10:31, (Unconfirmed) No significant change was found Confirmed by DR. Selina VICTOR ([id number]) on 03/25/2017 4:43:30 PM Referred By: PB Confirmed By:DR. Selina VICTOR
--- NOTE | 2017-03-31 18:47 | EKG ---
Test Reason : POST EP/ABLATION Blood Pressure : / mmHG Vent. Rate : 063 BPM Atrial Rate : 063 BPM P-R Int : 198 ms QRS Dur : 108 ms QT Int : 500 ms P-R-T Axes : 071 -01 063 degrees QTc Int : 511 ms Normal sinus rhythm Possible Lateral infarct (cited on or before 01-MAR-2017) Prolonged QT Abnormal ECG When compared with ECG of 02-MAR-2017 15:46, (Unconfirmed) No significant change was found Confirmed by DR. Selina VICTOR ([id number]) on 03/31/2017 6:46:47 PM Referred By: ABIGAIL Confirmed By:DR. Selina VICTOR
== END 2017-03-04 17:48 | disposition home or self-care (01) | DRG 274 ==
LOC: ERS 09:57 → ERHOLD 12:21 → 2NO 20:23
PROVIDERS: ADMIT Internal Medicine; ATTEND Internal Medicine
PROC: 4A023N7 Measurement of Cardiac Sampling and Pressure, Left Heart, Percutaneous Approach (ICD-10-PCS; 2017-03-01)
PROC: B2111ZZ Fluoroscopy of Multiple Coronary Arteries using Low Osmolar Contrast (ICD-10-PCS; 2017-03-01)
PROC: B2151ZZ Fluoroscopy of Left Heart using Low Osmolar Contrast (ICD-10-PCS; 2017-03-01)
PROC: 02583ZZ Destruction of Conduction Mechanism, Percutaneous Approach (ICD-10-PCS; principal; 2017-03-03)
PROC: 02K83ZZ Map Conduction Mechanism, Percutaneous Approach (ICD-10-PCS; 2017-03-03)
PROC: 5A2204Z Restoration of Cardiac Rhythm, Single (ICD-10-PCS; 2017-03-03)
DX: I21.A1 Myocardial infarction type 2 (principal); I48.92 Unspecified atrial flutter; I48.91 Unspecified atrial fibrillation; I47.1 Supraventricular tachycardia; E66.9 Obesity, unspecified; E78.5 Hyperlipidemia, unspecified; Z68.39 Body mass index [BMI] 39.0-39.9, adult; F41.9 Anxiety disorder, unspecified; I12.9 Hypertensive chronic kidney disease with stage 1 through stage 4 chronic kidney disease, or unspecified chronic kidney disease; N18.2 Chronic kidney disease, stage 2 (mild); I35.0 Nonrheumatic aortic (valve) stenosis
CPT/HCPCS: 36415; 71045; 76942; 80048; 80053; 80061; 80069; 82553; 83690; 83735; 83880; 84484; 85025; 85347; 85610; 85730; 92960; 93005; 93010; 93454; 93613; 93622; 93656; 93662; 93798; 93880; 94760; 96372; 99152; 99153; C1731; C1759; C1769; J1100; J1644; J1650; J1940; J2250; J2405; J2704; J2720; J3010

== ENCOUNTER 2017-03-29 21:16 | Emergency (ER) | payer MEDICARE, OTHER ==
[2017-03-29] MEDS ORDERED: Lorazepam 2 MG/ML VIAL ONE (21:44)
[2017-03-29 21:52] LABS: Bilirubin Negative (Negative); Blood, Urine Negative (Negative); Clarity CLOUDY (Clear); Glucose, Urine (Dipstick) Negative (Negative); Leukocyte Large (Negative); Nitrite Negative (Negative); Protein, Urine (Dipstick) Negative (Neg-Trace); Specific Gravity, Urine 1.016 (1.002-1.036); Urobilinogen 0.2 mg/dL (0.2-1.0)
[2017-03-29 21:53] LABS: #Basophils 0.1 thou/uL (0.0-0.2); #Eosinphils 0.4 thou/uL (0.0-0.7); #Lymphocytes 2.9 thou/uL (1.20-3.40); #Monocytes 0.8 thou/uL (0.11-0.59); #Neutrophils 5.9 thou/uL (1.40-6.50); %Basophils 1.3 % (0.0-1.0); %Eosinophils 4.1 % (0.0-10.0); %Lymphocytes 28.6 % (21.0-51.0); %Monocytes 7.6 % (0.0-10.0); %Neutrophils 58.3 % (42.0-75.0); Hemoglobin 12.5 g/dL (12.0-16.0); Mean Corpuscular HGB CONC 33.5 g/dL (32.0-36.0); Mean Corpuscular Hemoglobin 31.6 pg (27.0-31.0); Mean Corpuscular Volume 94.1 fl (81.0-99.0); Mean Platelet Volume 7.7 fL (7.4-10.4); Platelet Count 255 thou/uL (130-400); Red Blood Cell (RBC) Count 3.97 mill/uL (4.20-5.40); White Blood Cell (WBC) Count 10.1 thou/uL (4.8-10.8)
[2017-03-29 21:55] LABS: Bacteria/HPF None Seen HPF (None Seen); Hyaline Casts/LPF 4-6 HYALINE CAST LPF (0-3 Hyaline); Pathc Cast-AUWi Flag 0.94 (0-2.49)
--- NOTE | 2017-03-29 22:11 | RAD ---
PORTABLE CHEST: 03/29/17 HISTORY: Chest pain. COMPARISON: 03/01/17. The heart is mildly prominent but stable. The lung moreira are clear. No evidence of infiltrate or vas cular congestion. No effusion. No interval change. IMPRESSION: No acute process or interval change noted. POS: [facility]
[2017-03-29 22:21] LABS: CKMB 0.8 ng/mL (0-6.6); Troponin I 0.019 ng/mL (< 0.028)
[2017-03-29] MEDS ORDERED: Lorazepam 1 MG TAB PO SCH (22:30)
[2017-03-29] MEDS ORDERED: Lorazepam 1 MG TAB ONE (22:40)
[2017-03-29] MEDS ORDERED: Ciprofloxacin 500 MG TAB ONE (22:41)
[2017-03-29 23:04] LABS: Albumin 4.2 g/dL (3.4-4.8)
[2017-03-29 23:05] LABS: Chloride 105 mmol/L (98-107); Potassium 4.2 mmol/L (3.5-5.1); Sodium 142 mmol/L (136-145)
[2017-03-29 23:06] LABS: Calcium 9.7 mg/dL (7.8-10.44); Glucose 112 mg/dL (80-115)
[2017-03-29 23:07] LABS: Protein, Total 7.2 g/dL (6.0-8.3)
[2017-03-29 23:08] LABS: Anion Gap 11 mmol/L (10-20); Bilirubin, Total 0.3 mg/dL (0.2-1.2); Carbon Dioxide 30 mmol/L (23-31)
[2017-03-29 23:09] LABS: Alkaline Phosphatase 57 U/L (40-150)
[2017-03-29 23:10] LABS: Calc. Creatinine Clearance 0 mL/min (70-130); Estimated GFR-MDRD 54
[2017-03-29 23:11] LABS: BUN (Urea Nitrogen) 24 mg/dL (9.8-20.1)
[2017-03-29 23:12] LABS: ALT (SGPT) 14 U/L (8-55); AST (SGOT) 13 U/L (5-34)
[2017-03-29 23:13] LABS: CK (CPK) 60 U/L (29-168); Lipase 64 U/L (8-78)
--- NOTE | 2017-05-07 12:36 | EKG ---
Test Reason : Blood Pressure : / mmHG Vent. Rate : 064 BPM Atrial Rate : 064 BPM P-R Int : 172 ms QRS Dur : 104 ms QT Int : 450 ms P-R-T Axes : 037 005 081 degrees QTc Int : 464 ms Normal sinus rhythm Possible Lateral infarct , age undetermined Abnormal ECG Confirmed by SIMONA GRIFFIN, SHYAM (12), fan mail editor TERRANCE LIVINGSTON ([id number]) on 05/07/2017 12:35:50 PM Referred By: Confirmed By:SHYAM JARVIS MD
== END 2017-03-29 22:57 | disposition home or self-care (01) ==
LOC: ERS 21:16
DX: R00.2 Palpitations (principal); N39.0 Urinary tract infection, site not specified; F41.9 Anxiety disorder, unspecified; I10 Essential (primary) hypertension; I48.91 Unspecified atrial fibrillation; M19.90 Unspecified osteoarthritis, unspecified site; Z79.899 Other long term (current) drug therapy
CPT/HCPCS: 36415; 71045; 80053; 81003; 81015; 82553; 83690; 83880; 84484; 85025; 93005; J2060

== ENCOUNTER 2017-05-13 03:53 | Inpatient (IN) | payer MEDICARE, OTHER ==
[2017-05-13] MEDS ORDERED: Ondansetron HCl/PF 4 MG/2 ML Vial ONE ×2 (04:02→09:48)
[2017-05-13 04:37] LABS: #Basophils 0.1 thou/uL (0.0-0.2); #Eosinphils 0.1 thou/uL (0.0-0.7); #Lymphocytes 2.1 thou/uL (1.20-3.40); #Monocytes 0.5 thou/uL (0.11-0.59); #Neutrophils 9.3 thou/uL (1.40-6.50); %Basophils 0.7 % (0.0-1.0); %Eosinophils 0.8 % (0.0-10.0); %Lymphocytes 17.1 % (21.0-51.0); %Monocytes 4.1 % (0.0-10.0); %Neutrophils 77.3 % (42.0-75.0); Hemoglobin 9.6 g/dL (12.0-16.0); Mean Corpuscular HGB CONC 32.3 g/dL (32.0-36.0); Mean Corpuscular Hemoglobin 29.7 pg (27.0-31.0); Mean Corpuscular Volume 91.8 fl (81.0-99.0); Mean Platelet Volume 7.2 fL (7.4-10.4); Platelet Count 303 thou/uL (130-400); RBC Distribution Width 11.9 % (11.5-14.5); Red Blood Cell (RBC) Count 3.22 mill/uL (4.20-5.40)
[2017-05-13 04:51] LABS: ALT (SGPT) 12 U/L (8-55); AST (SGOT) 11 U/L (5-34); Albumin 3.7 g/dL (3.4-4.8); Alkaline Phosphatase 46 U/L (40-150); Anion Gap 13 mmol/L (10-20); BUN (Urea Nitrogen) 54 mg/dL (9.8-20.1); Bilirubin, Total 0.3 mg/dL (0.2-1.2); Calc. Creatinine Clearance 0 mL/min (70-130); Carbon Dioxide 26 mmol/L (23-31); Chloride 106 mmol/L (98-107); Estimated GFR-MDRD 56; Globulin 2.4 g/dL (2.4-3.5); Glucose 154 mg/dL (80-115); Potassium 3.6 mmol/L (3.5-5.1); Protein, Total 6.1 g/dL (6.0-8.3); Sodium 141 mmol/L (136-145)
[2017-05-13 04:55] LABS: CKMB 0.6 ng/mL (0-6.6); Troponin I Less than 0.010 ng/mL (< 0.028)
[2017-05-13 05:03] LABS: INR-International Normal Ratio 1.1; PTT 24.3 SEC (22.9-36.1); Prothrombin Time 14.8 SEC (12.0-14.7)
[2017-05-13] MEDS ORDERED: Pantoprazole 40 MG VIAL ONE (05:16)
[2017-05-13] MEDS ORDERED: Propofol 200 MG/20 ML VIAL ONE (07:09)
[2017-05-13] MEDS ORDERED: Lidocaine 1% PF 5 ML VIAL ONE (07:09)
--- NOTE | 2017-05-13 08:15 | RAD ---
ABDOMEN TWO VIEWS CHEST ONE VIEW: History: 67-year-old female with history of nausea, vomiting, and diarrhea. Comparison: 03-01-17 FINDINGS: No significant acute process in the chest. No evidence of large or small bowel obstruction. No free intraperitoneal air. No overt calculus. Mini mal fecal material in the right colon. IMPRESSION: No significant acute process in the chest, abdomen or pelvis. POS: [facility]
[2017-05-13] MEDS ORDERED: ISOVUE-370 76%-LOCM 1 ML ONE (11:36)
[2017-05-13 11:43] VITALS: BMI 38.4
[2017-05-13] MEDS ORDERED: Sodium Chloride 0.9% 1,000 ML IV SCH (11:45)
[2017-05-13] MEDS ORDERED: Ondansetron HCl/PF 4 MG/2 ML Vial IVP PRN ×2 (15:01→18:12)
[2017-05-13] MEDS ORDERED: Mag-Al 1200 mg/1200 mg/30 ML UDCUP PO PRN (15:35)
[2017-05-13] MEDS ORDERED: Morphine 4 MG/ML VIAL ONE (16:44)
[2017-05-13] MEDS ORDERED: Morphine Sulfate 2 MG/ML SYRINGE SLOW IVP PRN (18:12)
[2017-05-13] MEDS ORDERED: Promethazine HCl 25 MG/ML VIAL IM PRN (18:12)
[2017-05-13] MEDS ORDERED: Ondansetron HCl/PF 4 MG/2 ML Vial SLOW IVP PRN (18:52)
[2017-05-13 19:12] LABS: Hemoglobin 9.2 g/dL (12.0-16.0)
--- NOTE | 2017-05-13 19:51 | OP ---
DATE OF PROCEDURE: 05/13/2017 PROCEDURE: Esophagogastroduodenoscopy with biopsy and control of hemorrhage. INDICATION FOR PROCEDURE: Melena, hematemesis. DESCRIPTION OF PROCEDURE: After the risks and benefits of the procedure were explained to the patien t including risks of bleeding, infection, perforation, reaction to anesthesia and/or pain. Informed consent was obtained. The patient was then taken to the endoscopy suite where deep sedation was admi nistered via propofol and anesthesia support. The standard gastroscope was then introduced into the mouth with intubation of the esophagus, stomach and proximal small intestine with the findings listed below. The patient tolerated the procedure well with no immediate perioperative complications. FINDINGS: Esophagus: Normal-appearing mucosa was seen in the proximal, mid and distal esophagus, there was no evidence of erosions, ulcerations, mass lesions or active/recent bleeding. Both the diaphragmatic pi nch and GE junction were well seen at 40 cm past the incisors. Stomach: Moderate amount of black blood was seen throughout the entire stomach that was amenable to aggressive irrigation and suctioning and adequate visualization of the underlying mucosa was achieved . Normal mucosa was seen in the cardia, fundus, antrum and incisura. A 4-5 cm Globular mass with ul cerated overlying mucosa was seen in the distal gastric body with approximately 5 cratered ulceration s seen overlying this mass. Two ulcerations measuring approximately 8-10 mm in size, displayed adher ent clot as well as a red spot along the peripheral aspect of the ulceration concerning for recent GI bleeding. Multiple biopsies were obtained from the mucosa overlying this particular Globular mass a nd placed in a specimen jar for evaluation. Then, using a 10-Indonesian bipolar cautery probe electrocau cristo was administered to the red spots as well as any signs of active/oozing of blood along the surfa ce of this Globular mass with good hemostasis achieved. Duodenum: Normal-appearing mucosa was seen in both the duodenal bulb and second portion of the duode num with no evidence of erosions, ulcerations, mass, lesions or active/recent bleeding. IMPRESSION: 1. A 4-5 cm Globular mass with ulcerated overlying mucosa seen in the gastric body along the greater curvature concerning for malignancy/GI stromal tumor, now status post bipolar cautery and good hemos tasis. 2. Otherwise, normal upper endoscopy. RECOMMENDATIONS: 1. We would place the patient on a PPI drip given the recent melenic episodes and findings of ulcera tive mucosa within the stomach. 2. We would continue to trend H&H and transfuse as necessary to maintain an H&H of 09/10. 3. We would consult General Surgery service for evaluation of this case and possible surgical excisi on of a globular mass/GI stromal tumor. 4. I will order a contrasted CT scan of the abdomen and pelvis for further evaluation of this gastri c mass and determine extent of the mass and/or metastatic disease. 5. We would continue to hold any anticoagulation for now.
--- NOTE | 2017-05-13 20:39 | CON ---
DATE OF CONSULTATION: 05/13/2017 REASON FOR CONSULTATION: Melena, hematemesis. CONSULTING PHYSICIAN: Pradeep Acosta MD HISTORY OF PRESENT ILLNESS: The patient is a 67-year-old female with past medical history of hyperte nsion; hyperlipidemia; obesity; anxiety; atrial flutter, status post ablation; and atrial fibrillatio n, on anticoagulation presenting with complaint of coffee-ground emesis and black colored stools. Sh e states that she was in her usual state of health until approximately 3 days ago when she experience d increased constipation, characterized as having no bowel movements over that same time. However, y morning, she experienced acute onset of diaphoresis, flushing, abdominal bloating, and feeli ng queasy which was then shortly followed by a black liquid stool. Over the next 12 hours, she had r epeated episodes of nausea, vomiting of coffee ground/black colored emesis in addition to repeated ep isodes of more black liquid stools concerning for GI bleeding. These above symptoms then prompted he r to seek admission in the ER at [facility] where she was noted to have a decrease in her H&H when compared to previous. Admitted to the hospital for a possible upper GI bleed. Of note, the patient does have chronic knee and shoulder pain, for which she does take Meloxicam daily. She is n ot currently taking any acid suppression/PPI medications for mucosal protection. REVIEW OF SYSTEMS: The patient currently denies any fevers, chills, abdominal pain, dysphagia, or od ynophagia. REVIEW OF SYSTEMS: A 10 category review of systems was obtained with all responses negative except f or the pertinent positives as listed in the HPI. PAST MEDICAL HISTORY: See HPI. PAST SURGICAL HISTORY: Ablation x2, cholecystectomy, tonsillectomy, left knee surgery. FAMILY HISTORY: Coronary artery disease, colon cancer (father, brother), lung cancer (mother, brothe r). SOCIAL HISTORY: Denies any tobacco, alcohol, or illicit drug use. OUTPATIENT MEDICATIONS: Reviewed. ALLERGIES: No known drug allergies. PHYSICAL EXAMINATION: VITAL SIGNS: Temperature 98.4, pulse 80, blood pressure 116/71, respiratory rate 18, saturating 96% on room air. GENERAL: The patient is lying in bed in elxi-nf-mukmflvi distress. Alert and oriented x4. NECK: Supple. No JVD noted. CARDIOVASCULAR: Regular rate and rhythm with no discernible murmurs, gallops, or rubs. RESPIRATORY: Clear to auscultation bilaterally with no discernible wheezes or rales. ABDOMEN: Normoactive bowel sounds. Soft. Mild distention. Tenderness to palpation in the periumbi lical and left lower quadrant. EXTREMITIES: No cyanosis, clubbing, or edema. LABORATORY STUDIES: CBC with a white blood cell count of 12, hemoglobin 9.6, hematocrit 29.5, platel ets 303. Chemistry with a sodium of 141, potassium 3.6, chloride 106, CO2 of 26, BUN 54, creatinine 0.99, glucose 154, AST 11, ALT 12, alkaline phosphatase 46, total bilirubin 0.3. IMAGING DATA: An acute abdominal series obtained on 05/13/2017 showed no evidence of large or small bowel obstruction. No free intraperitoneal air and minimal fecal material within the right colon. ASSESSMENT AND PLAN: The patient is a 67-year-old female with past medical history of hypertension; hyperlipidemia; obesity; atrial flutter, status post ablation; anxiety; and atrial fibrillation, on a nticoagulation presenting with upper GI bleeding. Upper gastrointestinal bleed: The patient is presenting with acute onset of diaphoresis, flushing, a bdominal bloating, and generalized malaise that was initially accompanied by constipation; however, t he patient started having multiple diarrhea-like bowel movements black in coloration, as well as coff ee-ground emesis concerning for melena and hematemesis with an upper GI bleed. She is currently taki ng meloxicam daily for chronic shoulder and knee pain, which could potentially contribute to GI upset and/or peptic ulcer disease that would then be further exacerbated by use of anticoagulation. Diffe rential could also include arteriovenous malformation, Dieulafoy lesion, gastritis, esophagitis, and/ or malignancy. RECOMMENDATIONS: 1. We would continue the patient on n.p.o. status and plan for EGD later on today. 2. We would continue to trend H&H and transfuse as necessary to maintain an H&H of 09/10. 3. We would start the patient on pantoprazole 40 mg IV b.i.d. with consideration for pantoprazole dr dale, given in light of probable upper GI bleeding. 4. Further recommendations to follow upper endoscopy. We will continue to follow. Please call with any questions.
--- NOTE | 2017-05-13 20:59 | CT ---
CT ABDOMEN AND PELVIS WITH IV CONTRAST 05/13/17 HISTORY: Bleeding gastric mass seen on EGD. FINDINGS: There is an approximately 4 cm mass seen in the region of the distal body of the stomach. This is lik stu related to the mass noted on recent EGD. The liver, spleen, pancreas, bilateral adrenal glands, kidneys, abdominal aorta, urinary bladder, [place] alicia, and adnexal structures have an normal CT appearance. The opacified small bowel is normal in appearance. There is colonic diverticulosis present. No free fluid, fluid collection, or lymphadenopathy is seen in the abdomen or pelvis. A fat containing umbilical hernia is noted. Degenerative changes are seen in the spine. No lytic or sclerotic osseous lesions are identified. IMPRESSION: 1. Gastric mass measuring approximately 4 cm. 2. Colonic diverticulosis. 3. Fat containing umbilical hernia. 4. No evidence of lymphadenopathy. POS: [facility]
[2017-05-13] MEDS ORDERED: Pantoprazole 40 MG VIAL IVP SCH (21:00)
[2017-05-13] MEDS: Pantoprazole 80 MG in Sodium Chloride 0.9% 100 ML IVP SCH (21:24)
[2017-05-13] MEDS ORDERED: Temazepam 15 MG CAP PO SCH (23:15)
--- NOTE | 2017-05-14 00:45 | HP ---
CHIEF COMPLAINT: Abdominal pain with vomiting up of black emesis and black stool. HISTORY OF PRESENT ILLNESS: This is a 67-year-old female patient with a past medical history signifi cant for atrial fibrillation, status post ablation, hypertension who had a few days of constipation a nd took some laxative as usual; however, around 2:00 a.m. last night, the patient developed abdominal discomfort and started having black stool as well as vomiting with the vomitus been black in color. The patient described the pain as burning and painful, but no fever, no sick contacts. As a result, the patient presented here and continued to have this abdominal discomfort. Referral Management Liaison marisa uated the patient and plan is to have patient undergo esophagogastroduodenoscopy. PAST MEDICAL HISTORY: As documented in the body of the history. MEDICATIONS: Have been reviewed and as documented on [employer]. ALLERGIES: No known drug allergy. FAMILY HISTORY: No family history of a gastroenterological problem. SOCIAL HISTORY: Denies alcohol, tobacco or illicit drug use. REVIEW OF SYSTEMS: As documented in the body of the history. All the other systems were reviewed an d found not to be significantly related to presenting illness. LABORATORY INVESTIGATION: Showed a white count of 12,000, hemoglobin 9.6, platelets 103,000. INR of 1.1. Chemistry is unremarkable. PHYSICAL EXAMINATION: GENERAL: The patient was found to be in physical distress. VITAL SIGNS: Afebrile, temperature 98.4, pulse 80, respiratory rate of 18, O2 sat 96% with blood pre ssure 116/71. HEENT: Unremarkable. Moist oral mucosa. No conjunctival injection or icterus. NECK: Supple. CARDIOVASCULAR SYSTEM: First and second heart sounds were heard. RESPIRATORY SYSTEM: Clear to auscultation. DIGESTIVE SYSTEM: Revealed epigastric tenderness with positive bowel sounds. EXTREMITIES: No peripheral edema. SKIN: No new gross rash. LYMPHATICS: No peripheral lymphadenopathy. IMPRESSION: 1. Abdominal discomfort associated with vomiting and diarrhea, query cause. 2. Possible bleeding peptic ulcer. 3. Hypertension. 4. History of atrial fibrillation, status post ablation. PLAN: 1. Discontinue all nonsteroidal anti-inflammatory drugs. The patient used to be on meloxicam. 2. proton pump inhibitor. 3. Gastroenterology consultation. We will plan for esophagogastroduodenoscopy. 4. Pain management. 5. Further management to be dependent on the clinical course as well as the diagnostic findings from the EGD.
[2017-05-14 05:15] LABS: #Basophils 0.1 thou/uL (0.0-0.2); #Eosinphils 0.1 thou/uL (0.0-0.7); #Lymphocytes 3.2 thou/uL (1.20-3.40); #Monocytes 0.6 thou/uL (0.11-0.59); #Neutrophils 5.8 thou/uL (1.40-6.50); %Basophils 0.8 % (0.0-1.0); %Eosinophils 1.2 % (0.0-10.0); %Lymphocytes 32.6 % (21.0-51.0); %Monocytes 6.1 % (0.0-10.0); %Neutrophils 59.2 % (42.0-75.0); Hemoglobin 6.8 g/dL (12.0-16.0); Mean Corpuscular HGB CONC 33.8 g/dL (32.0-36.0); Mean Corpuscular Hemoglobin 31.3 pg (27.0-31.0); Mean Corpuscular Volume 92.5 fl (81.0-99.0); Mean Platelet Volume 7.2 fL (7.4-10.4); Platelet Count 208 thou/uL (130-400); RBC Distribution Width 11.9 % (11.5-14.5); Red Blood Cell (RBC) Count 2.16 mill/uL (4.20-5.40); White Blood Cell (WBC) Count 9.8 thou/uL (4.8-10.8)
[2017-05-14 05:28] LABS: Anion Gap 8 mmol/L (10-20); BUN (Urea Nitrogen) 31 mg/dL (9.8-20.1); Calc. Creatinine Clearance 122 mL/min (70-130); Carbon Dioxide 24 mmol/L (23-31); Chloride 109 mmol/L (98-107); Estimated GFR-MDRD 78; Glucose 114 mg/dL (80-115); Magnesium 1.9 mg/dL (1.6-2.6); Potassium 3.6 mmol/L (3.5-5.1); Sodium 137 mmol/L (136-145)
[2017-05-14] MEDS ORDERED: CEFAZOLIN/Water 2 GM/20 ML SYRINGE SLOW IVP SCH (08:45)
[2017-05-14] MEDS: Pantoprazole 80 MG in Sodium Chloride 0.9% 100 ML IVP SCH (09:01)
[2017-05-14] MEDS ORDERED: CEFAZOLIN/Water 2 GM/20 ML SYRINGE ONE (12:13)
[2017-05-14] MEDS ORDERED: Fentanyl 250 MCG/5 ML VIAL ONE (12:49)
[2017-05-14] MEDS ORDERED: Bupivacaine/Epinephrine 0.25% 30 ML VIAL ONE (12:50)
--- NOTE | 2017-05-14 14:33 | CON ---
DATE OF CONSULTATION: 05/14/2017 CHIEF COMPLAINT: Upper gastrointestinal bleed. HISTORY OF PRESENT ILLNESS: A 67-year-old female with a history of atrial fibrillation, underwent ab lation in February, who over the last 5 days has been having black tarry stools and hematemesis. She was admitted, as she had a near syncopal episode. She had an EGD yesterday showing a mass in her dis veronique body of her stomach that is about 4 cm in diameter that had a bleeding source. 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 PAST MEDICAL HISTORY: Significant for atrial fibrillation, hypertension, SVT, obesity, arthritis. PAST SURGICAL HISTORY: She has had an open cholecystectomy, open appendectomy, knee surgery, and car diac ablation. MEDICATIONS: Meloxicam; furosemide; Eliquis, which she has been off for 2 days; lisinopril; metoprol ol. ALLERGIES: No known drug allergies. FAMILY HISTORY: Brother just of lung cancer. Father had colon cancer. She had a colonoscopy 5 years ago. SOCIAL HISTORY: She is . No tobacco or alcohol. PHYSICAL EXAMINATION: VITAL SIGNS: Temperature 98.2, pulse 79, blood pressure 121/55. Her BMI is 38.4. GENERAL: She is an obese female, somewhat pale, but awake, alert, in no apparent distress. HEENT: Unremarkable. LUNGS: Clear. HEART: Regular rate and rhythm. ABDOMEN: Obese, soft, nontender. She has a well-healed surgical scar, midline. EXTREMITIES: Unremarkable. LABORATORY AND X-RAY FINDINGS: White count 9.8, H and H is 6.8 and 20, platelet count 208. Electrol ytes are fine. Glucose elevated at 114. LFTs normal. CT scan showed a 4 cm gastric mass. No nodul es, no liver masses, no adenopathy. ASSESSMENT: Bleeding gastric mass, probably gastrointestinal stromal tumor. PLAN: Laparoscopic partial gastrectomy with EGD. CONSENT: I have discussed the planned procedure as well as risk of bleeding, infection, injury to svetlana wel, esophagus, spleen, need for possible Baldomero-en-Y, need for possible open surgery that she might moran ve to have further surgery if the pathology comes back more malignant and also the risk of staple mary e leak. She understands and gives her informed consent.
--- NOTE | 2017-05-14 15:37 | PDOC.PN ---
- Subjective Encounter Start Date: 05/14/17 Encounter Start Time: 15:35 Subjective: still has on and off abdominal pain -: Loose black tarry stools persist -: care discussed w at bedside - Objective Resuscitation Status: Resuscitation Status FULL:Full Resuscitation MAR Reviewed: Yes Vital Signs & Weight: Vital Signs (12 hours) Temp Pulse Resp BP BP Pulse Ox 05/14/17 12:00 95 05/14/17 11:45 98.7 F 74 20 131/63 99 05/14/17 11:07 98 F 18 98 05/14/17 08:00 98.7 F 74 20 05/14/17 07:35 98.0 F 65 18 117/55 L 98 Weight Weight 227 lb 7 oz I&O: 05/13/17 05/14/17 05/15/17 06:59 06:59 06:59 Intake Total 330 0 Balance 330 0 Result Diagrams: 05/14/17 04:48 05/14/17 04:48 Additional Labs: Laboratory Tests 05/13/17 05/13/17 05/14/17 04:27 19:04 04:48 Hgb 9.6 L 9.2 L 6.8 L Phys Exam - Physical Examination Constitutional: NAD pale HEENT: PERRLA, moist MMs, sclera anicteric, oral pharynx no lesions Neck: no nodes, no JVD, supple, full ROM Respiratory: no wheezing, no rales, no rhonchi, clear to auscultation bilateral Cardiovascular: RRR, no significant murmur Gastrointestinal: soft, no distention, positive bowel sounds TTP Musculoskeletal: no edema, pulses present Neurological: non-focal, normal sensation, moves all 4 limbs Psychiatric: normal affect, A&O x 3 Skin: no rash Dx/Plan (1) GI bleed Code(s): K92.2 - GASTROINTESTINAL HEMORRHAGE, UNSPECIFIED Status: Acute (2) Blood loss anemia Code(s): D50.0 - IRON DEFICIENCY ANEMIA SECONDARY TO BLOOD LOSS (CHRONIC) Status: Acute (3) Stomach neoplasm Code(s): D49.0 - NEOPLASM OF UNSPECIFIED BEHAVIOR OF DIGESTIVE SYSTEM Status: Acute (4) H/O paroxysmal supraventricular tachycardia Code(s): Z86.79 - PERSONAL HISTORY OF OTHER DISEASES OF THE CIRCULATORY SYSTEM Status: Acute (5) Dyslipidemia Code(s): E78.5 - HYPERLIPIDEMIA, UNSPECIFIED Status: Chronic (6) Hypertension Code(s): I10 - ESSENTIAL (PRIMARY) HYPERTENSION Status: Chronic - Plan PT/OT, out of bed/ambulate, DVT proph w/SCDs H/H low again today. transfuse 2 units PRBC. cont PPI drip. -: Anticoagulation on hold.DC permanantly likley. -: GI following. GS to take to OR for tumor removal found on EGD -: cont supportive care.IVF.pain meds -: daily labs.Follow pathology * . Review of Systems - Review of Systems Constitutional: weakness, malaise. negative: fever, chills, sweats, other Eyes: negative: Pain, Vision Change, Conjunctivae Inflammation, Eyelid Inflammation, Redness, Other ENT: negative: Ear Pain, Ear Discharge, Nose Pain, Nose Discharge, Nose Congestion, Mouth Pain, Mouth Swelling, Throat Pain, Throat Swelling, Other Respiratory: negative: Cough, Dry, Shortness of Breath, Hemoptysis, SOB with Excertion, Pleuritic Pain, Sputum, Wheezing Cardiovascular: negative: chest pain, palpitations, orthopnea, paroxysmal nocturnal dyspnea, edema, light headedness, other Gastrointestinal: Abdominal Pain, Melena. negative: Nausea, Vomiting, Diarrhea , Constipation, Hematochezia, Other Genitourinary: negative: Dysuria, Frequency, Incontinence, Hematuria, Retention , Other Musculoskeletal: negative: Neck Pain, Shoulder Pain, Arm Pain, Back Pain, Hand Pain, Leg Pain, Foot Pain, Other Skin: negative: Rash, Lesions, Joe, Bruising, Other Neurological: negative: Weakness, Numbness, Incoordination, Change in Speech, Confusion, Seizures, Other - Medications/Allergies Allergies/Adverse Reactions: Allergies Allergy/AdvReac Type Severity Reaction Status Date / Time No Known Allergies Allergy Verified 03/01/17 21:22 Medications: Current Medications Acetaminophen (Tylenol) 500 mg PO Q6H PRN PRN Reason: Headache/Fever or Pain Al Hydroxide/Mg Hydroxide (Maalox) 30 ml PO Q6H PRN PRN Reason: Heartburn or Indigestion Cefazolin Sodium (Ancef) 2 gm SLOW IVP WILLCALL DEBORAH Stop: 05/15/17 15:00 Pantoprazole Sodium 80 mg/ (Sodium Chloride) 100 mls @ 10 mls/hr IVP INF DEBORAH Last Admin: 05/14/17 09:01 Dose: 100 mls Morphine Sulfate (Morphine) 2 mg SLOW IVP Q4H PRN PRN Reason: Pain Ondansetron HCl (Zofran) 4 mg SLOW IVP Q6H PRN PRN Reason: Nausea/Vomiting Sodium Chloride (Flush - Normal Saline) 10 ml IVF Q12HR [facility] Last Admin: 05/14/17 12:52 Dose: 10 ml Sodium Chloride (Flush - Normal Saline) 10 ml IVF PRN PRN PRN Reason: Saline Flush
[2017-05-14] MEDS ORDERED: Ondansetron HCl/PF 4 MG/2 ML Vial ONE ×2 (15:39→16:16)
[2017-05-14] MEDS ORDERED: diphenhydrAMINE 50 MG/ML VIAL IM PRN (15:40)
[2017-05-14] MEDS ORDERED: Promethazine HCl 25 MG/ML VIAL SLOW IVP PRN (15:40)
[2017-05-14] MEDS ORDERED: Naloxone HCl 0.4 mg/ml Vial IV PRN (15:40)
[2017-05-14] MEDS ORDERED: diphenhydrAMINE 25 MG CAP PO PRN (15:40)
[2017-05-14] MEDS ORDERED: Ondansetron HCl/PF 4 MG/2 ML Vial IVP PRN ×3 (15:40→15:42)
[2017-05-14] MEDS ORDERED: diphenhydrAMINE 50 MG/ML VIAL IVP PRN ×2 (15:40→15:42)
[2017-05-14] MEDS ORDERED: Promethazine HCl 25 MG/ML VIAL IM PRN ×3 (15:40→15:42)
[2017-05-14] MEDS ORDERED: Morphine CADD 1 MG/ML CADD IVPB PRN (15:40)
[2017-05-14] MEDS ORDERED: Zolpidem Tartrate 5 MG TAB PO PRN (15:40)
[2017-05-14] MEDS ORDERED: Dextrose 50% Abboject 50 ML SYRINGE SLOW IVP PRN (15:42)
[2017-05-14] MEDS ORDERED: Dextrose 5% in Water 1,000 ML IV PRN (15:42)
[2017-05-14] MEDS ORDERED: hydrALAZINE 20 MG/ML VIAL SLOW IVP PRN (15:42)
[2017-05-14] MEDS ORDERED: Hydrocodone-Acetamin 15 ML UDCUP PO PRN (15:42)
[2017-05-14] MEDS ORDERED: Communication Order-Pharmacy FS SCH (15:45)
[2017-05-14] MEDS ORDERED: Fentanyl 100 MCG/2 ML VIAL ONE (15:59)
--- NOTE | 2017-05-14 15:59 | OP ---
DATE OF PROCEDURE: 05/14/2017 PREOPERATIVE DIAGNOSIS: Gastric tumor. SURGEON: Richard Washington M.D. PROCEDURE PERFORMED: Laparoscopic partial gastrectomy with removal of tumor and esophagogastroscopy. INDICATIONS: This is a 67-year-old female who came in with upper GI bleed. EGD yesterday showed a 4 -5 cm mass in the stomach along the greater curvature that was the source of the bleeding. FINDINGS: It was about a 4 cm pedunculated mass in the distal stomach along the greater curvature. There were quite a bit of adhesions. PROCEDURE IN DETAIL: After informed consent was obtained, the patient was taken to the operating horacio m and given general endotracheal anesthesia. She was placed in the supine position. Her abdomen was prepped and draped in usual fashion. Local anesthesia was infiltrated subcutaneously and deep and a 12 mm incision was performed in the left lateral abdomen as she had a previous midline incision for cholecystectomy. Veress needle inserted. Drop test performed. Pneumoperitoneum was created to a vo lume of 2 liters of carbon dioxide. Utilizing a bladeless 12 mm trocar and 0 degree laparoscope, dir ect visual entry into the abdominal cavity was performed. Pneumoperitoneum was created to a pressure of 15 mmHg. I was able to put a second trocar just above the umbilicus slightly to the left and too k down some of the adhesions, put a third trocar on the right. I was able to through that take down further adhesions. This is a slow tedious process of very dense adhesions on the anterior abdominal wall. Once we got all that done, patient was then placed in steep reverse Trendelenburg position. N athansen liver retractor inserted. Left lobe of liver retracted superiorly. Another 12 mm port was placed in the left upper quadrant. The omentum was taken off the greater curvature utilizing the Lig aSure. Then, I was able to define the actual tumor. This was taken down from about 5 cm from the py lorus. Short gastric was divided with LigaSure, left crura defined with the LigaSure. The 38-Yemeni bougie inserted and directed into the antrum. The linear 60 mm green load stapler used to divide th e antrum to the bougie, gold load along the bougie. I was able to get pretty clear margins by doing this then a series of blues through the angle of His. Intraoperative endoscopy was performed. The v ideo endoscope inserted under direct vision. The staple line inspected. There was no bleeding. Sta ple line was inflated with pressurized air under water. There was no air leak. I did not see any re sidual tumor within the sleeve itself. Stomach decompressed. Scope removed. A court size large 15 mm trocar sized Endobag was inserted intra-abdominally. The gastric remnant was including the tumor was placed in the bag. It was brought up to the left lateral port site, but I had to enlarge the ski n and muscle incision in order to get the specimen out. This was then inspected in the operating horacio m and by palpation, it was clear that the margins were good. It was then sent to pathology for furth er analysis. Hemostasis assured. The fascia was closed with interrupted 0 Vicryl suture and the Gra Nee needle. Hemostasis assured. There was a laceration of the liver that was oozing a little bit. This was controlled with Lisa powder. Hemostasis assured. Wound irrigated. Irrigation fluid ben ángel. Trocars and retractors were removed. Skin was closed with interrupted 4-0 Rapide. Dermabond a pplied. The patient tolerated the procedure well and was transferred to recovery in good condition. Sponge and needle count verified correct x2.
[2017-05-14] MEDS ORDERED: Glycopyrrolate 0.2 MG/ML 5 ML SYRINGE ONE (16:16)
[2017-05-14] MEDS ORDERED: PHENYLEPHRINE-NS 100 MCG/ML 10 ML SYRINGE ONE (16:16)
[2017-05-14] MEDS ORDERED: Propofol 200 MG/20 ML VIAL ONE (16:16)
[2017-05-14] MEDS ORDERED: Dexamethasone 20 MG/5 ML VIAL ONE (16:16)
[2017-05-14] MEDS ORDERED: Ketorolac Tromethamine 30 MG/ML VIAL ONE (16:16)
[2017-05-14] MEDS ORDERED: Lidocaine 1% PF 5 ML VIAL ONE (16:16)
--- NOTE | 2017-05-14 16:58 | PRG ---
DATE OF SERVICE: 05/14/2017 REASON FOR CONSULTATION: Melena, hematemesis. SUBJECTIVE: Yesterday, the patient was taken for urgent upper endoscopy and noted to have a 4-5 cm G lobular mass within the greater curvature of the stomach concerning for GI stromal tumor. There were multiple ulcerations overlying this particular tumor. There were oozing blood consistent with her r ecent melenic stools and hematemesis source. Using bipolar cautery, good hemostasis was achieved wit h CT of the abdomen and pelvis showing no extension of this particular lesion through the gastric wal l or metastatic spread throughout the remainder of the abdomen. General Surgery was consulted for fu rther evaluation with plans to take her for partial gastrectomy today. The patient had already been taken to surgery prior to me seeing her, so the remainder of the informa tion of this note was obtained per chart review. OBJECTIVE: VITAL SIGNS: Temperature 98.7, pulse 74, blood pressure 131/63, respiratory rate 20, and satting 99% on room air. PHYSICAL EXAMNATION: Could not be performed due to patient not being in the room. LABORATORY DATA: CBC with a white blood cell count of 9.8, hemoglobin 6.8, hematocrit 20, platelets 208. Sodium 137, potassium 3.6, chloride 109, CO2 of 24, BUN 31, creatinine 0.75, and glucose 114. IMAGING DATA: Upper endoscopy was performed on 05/13/2017 with brief explanation as listed in the tyler bjective above. ASSESSMENT AND PLAN: The patient is a 67-year-old female with past medical history of hypertension, hyperlipidemia, obesity, atrial flutter, status post ablation, anxiety, and atrial fibrillation on an ticoagulation, presenting with upper GI bleeding/GI stromal tumor. The patient initially presented w ith acute onset of diaphoresis, flushing, abdominal bloating, melena, and coffee ground emesis concer angelique for an upper GI bleeding source. EGD performed on 05/13/2017 showed a 4-5 cm Globular mass with in the submucosa of the stomach concerning for GI stromal tumor. Using bipolar cautery, the ulcerate d lesions on the surface of the GI stromal tumor were treated with good hemostasis achieved. However , given the size of this lesion and the oozing of blood, the likelihood of malignant transformation o f the GI stromal tumor is higher and risk of rebleeding is high. General Surgery was then consulted with plans to take her for a partial gastrectomy today for more definitive treatment of this particul ar lesion. RECOMMENDATIONS: 1. Would defer to General Surgery Service for further treatment of this lesion after partial gastrec lena and pathology results were obtained. 2. Could consider Oncology consultation in the future based on pathology results. We will sign off at this time. Please call with any additional questions.
[2017-05-14] MEDS ORDERED: Ketorolac Tromethamine 30 MG/ML VIAL IVP SCH (18:00)
[2017-05-14] MEDS: D5 1/2 NS w/20 mEq KCL 1,000 ML IV SCH ×2 (20:00→20:52)
[2017-05-14] MEDS: Pantoprazole 40 MG VIAL IVP SCH (20:51)
[2017-05-15 04:22] LABS: #Lymphocytes 1.7 thou/uL (1.20-3.40); #Monocytes 0.7 thou/uL (0.11-0.59); #Neutrophils 10.1 thou/uL (1.40-6.50); %Basophils 0.1 % (0.0-1.0); %Eosinophils 0.3 % (0.0-10.0); %Lymphocytes 13.9 % (21.0-51.0); %Monocytes 5.4 % (0.0-10.0); %Neutrophils 80.3 % (42.0-75.0); Hemoglobin 6.9 g/dL (12.0-16.0); Mean Corpuscular HGB CONC 34.1 g/dL (32.0-36.0); Mean Corpuscular Hemoglobin 31.4 pg (27.0-31.0); Mean Corpuscular Volume 92.1 fl (81.0-99.0); Mean Platelet Volume 7.4 fL (7.4-10.4); Platelet Count 180 thou/uL (130-400); RBC Distribution Width 12.8 % (11.5-14.5); White Blood Cell (WBC) Count 12.5 thou/uL (4.8-10.8)
[2017-05-15 04:34] LABS: Anion Gap 8 mmol/L (10-20); BUN (Urea Nitrogen) 19 mg/dL (9.8-20.1); Calc. Creatinine Clearance 119 mL/min (70-130); Calcium 7.8 mg/dL (7.8-10.44); Carbon Dioxide 24 mmol/L (23-31); Chloride 111 mmol/L (98-107); Estimated GFR-MDRD 75; Glucose 159 mg/dL (80-115); Potassium 4.4 mmol/L (3.5-5.1); Sodium 139 mmol/L (136-145)
[2017-05-15] MEDS: D5 1/2 NS w/20 mEq KCL 1,000 ML IV SCH ×3 (08:26→22:23)
[2017-05-15 09:24] LABS: Hemoglobin 7.3 g/dL (12.0-16.0); Platelet Count 203 thou/uL (130-400)
--- NOTE | 2017-05-15 10:40 | RAD ---
15 ML SWALLOW: Date: 05/15/17 HISTORY: Postop day 1. Partial gastrectomy for bleeding gastric mass. COMPARISON: None. FINDINGS: Patient administered a total of 15 mL of Gastrografin. Gastrografin passes from the esophagus into th e residual stomach. There is passage of contrast into multiple normal caliber small bowel loops, as w ell as into the colon. No evidence of extravasation or leak. IMPRESSION: No leak or extravasation. POS: MERLIN
[2017-05-15] MEDS ORDERED: DC PCA Order Set 1 EACH FS ONE (11:51)
[2017-05-15] MEDS ORDERED: Hydrocodone-Acetamin 15 ML UDCUP PO PRN (11:51)
[2017-05-15] MEDS ORDERED: GASTROGRAFIN 30 ML BOT ONE (13:07)
--- NOTE | 2017-05-15 14:48 | PDOC.PN ---
- Subjective Encounter Start Date: 05/15/17 Encounter Start Time: 14:46 Subjective: S/P lap gasterctomy w tumor removal yesterday. -: feels well. pain controlled w GUEST ROOM INSPECTOR.no melena/hematochezia -: care discussed w family at bedside - Objective Resuscitation Status: Resuscitation Status FULL:Full Resuscitation MAR Reviewed: Yes Vital Signs & Weight: Vital Signs (12 hours) Temp Pulse Resp BP BP Pulse Ox 05/15/17 11:56 98.5 F 67 20 109/72 97 05/15/17 08:50 98.5 F 69 18 115/66 94 L 05/15/17 04:25 98.5 F 69 17 116/74 97 Weight Weight 227 lb 7 oz I&O: 05/14/17 05/15/17 05/16/17 06:59 06:59 06:59 Intake Total 330 1500 Balance 330 1500 Result Diagrams: 05/15/17 09:10 05/15/17 03:56 Phys Exam - Physical Examination Constitutional: NAD pale HEENT: PERRLA, moist MMs, sclera anicteric, oral pharynx no lesions Neck: no nodes, no JVD, supple, full ROM Respiratory: no wheezing, no rales, no rhonchi, clear to auscultation bilateral Cardiovascular: RRR, no significant murmur Gastrointestinal: soft, non-tender, positive bowel sounds Surgical sites look clean and healthy Musculoskeletal: no edema, pulses present Neurological: non-focal, normal sensation, moves all 4 limbs Psychiatric: A&O x 3 Deviation from normal: depressed affect Dx/Plan (1) Stomach neoplasm Code(s): D49.0 - NEOPLASM OF UNSPECIFIED BEHAVIOR OF DIGESTIVE SYSTEM Status: Acute (2) Blood loss anemia Code(s): D50.0 - IRON DEFICIENCY ANEMIA SECONDARY TO BLOOD LOSS (CHRONIC) Status: Acute (3) GI bleed Code(s): K92.2 - GASTROINTESTINAL HEMORRHAGE, UNSPECIFIED Status: Resolved (4) H/O paroxysmal supraventricular tachycardia Code(s): Z86.79 - PERSONAL HISTORY OF OTHER DISEASES OF THE CIRCULATORY SYSTEM Status: Acute (5) Dyslipidemia Code(s): E78.5 - HYPERLIPIDEMIA, UNSPECIFIED Status: Chronic (6) Hypertension Code(s): I10 - ESSENTIAL (PRIMARY) HYPERTENSION Status: Chronic - Plan out of bed/ambulate, DVT proph w/SCDs repeat H/h this am has improved. hold off on transfusion.repeat H/H -: SBFT w/o leaks-diet as per GS. -: Follow pathology results then consult oncology. -: CT A/P w/o any other tumors or LAP -: Hemodynamically stable.cont PPI * . Review of Systems - Review of Systems Constitutional: weakness, malaise. negative: fever, chills, sweats, other ENT: negative: Ear Pain, Ear Discharge, Nose Pain, Nose Discharge, Nose Congestion, Mouth Pain, Mouth Swelling, Throat Pain, Throat Swelling, Other Respiratory: negative: Cough, Dry, Shortness of Breath, Hemoptysis, SOB with Excertion, Pleuritic Pain, Sputum, Wheezing Cardiovascular: negative: chest pain, palpitations, orthopnea, paroxysmal nocturnal dyspnea, edema, light headedness, other Gastrointestinal: Abdominal Pain. negative: Nausea, Vomiting, Diarrhea, Constipation, Melena, Hematochezia, Other Genitourinary: negative: Dysuria, Frequency, Incontinence, Hematuria, Retention , Other Musculoskeletal: negative: Neck Pain, Shoulder Pain, Arm Pain, Back Pain, Hand Pain, Leg Pain, Foot Pain, Other Skin: negative: Rash, Lesions, Joe, Bruising, Other Neurological: negative: Weakness, Numbness, Incoordination, Change in Speech, Confusion, Seizures, Other - Medications/Allergies Allergies/Adverse Reactions: Allergies Allergy/AdvReac Type Severity Reaction Status Date / Time No Known Allergies Allergy Verified 03/01/17 21:22 Medications: Current Medications Acetaminophen (Tylenol) 500 mg PO Q6H PRN PRN Reason: Headache/Fever or Mild Pain Hydrocodone Bitart/Acetaminophen (Hydrocodone-Apap 7.5-325/15) 15 ml PO Q4H PRN PRN Reason: Moderate to Severe Pain (6-10) Al Hydroxide/Mg Hydroxide (Maalox) 30 ml PO Q6H PRN PRN Reason: Heartburn or Indigestion Albuterol/Ipratropium (Duoneb) 3 ml NEB Q4H PRN PRN Reason: Wheezing Cefazolin Sodium (Ancef) 2 gm SLOW IVP [facility]CALL DEBORAH Stop: 05/15/17 15:00 Dextrose/Water (Dextrose 50%) 25 gm SLOW IVP PRN PRN PRN Reason: Hypoglycemia Diphenhydramine HCl (Benadryl) 25 mg IVP Q6H PRN PRN Reason: Itching & Insomnia Glucagon (Glucagon) 1 mg IM PRN PRN PRN Reason: Hypoglycemia Hydralazine HCl (Apresoline) 10 mg SLOW IVP Q4H PRN PRN Reason: SBP > 170 or DBP > 100 Pantoprazole Sodium 80 mg/ (Sodium Chloride) 100 mls @ 10 mls/hr IVP INF [facility] Last Admin: 05/14/17 09:01 Dose: 100 mls Potassium Chloride/Dextrose/Sod Cl (D5 1/2 Ns W/20 Meq Kcl) 1,000 mls @ 125 mls /hr IV .Q8H [facility] Last Admin: 05/15/17 08:26 Dose: Not Given Dextrose/Water (D5w) 1,000 mls @ 0 mls/hr IV .Q0M PRN; As Directed PRN Reason: Hypoglycemia Ondansetron HCl (Zofran) 4 mg IVP Q8H PRN PRN Reason: Nausea/Vomiting Pantoprazole Sodium (Protonix) 40 mg IVP 2100 [facility] Last Admin: 05/14/17 20:51 Dose: 40 mg Promethazine HCl (Phenergan) 12.5 mg IM Q2H PRN PRN Reason: Nausea/Vomiting Sodium Chloride (Flush - Normal Saline) 10 ml IVF Q12HR [facility] Last Admin: 05/15/17 08:26 Dose: Not Given Sodium Chloride (Flush - Normal Saline) 10 ml IVF PRN PRN PRN Reason: Saline Flush
[2017-05-15 15:14] LABS: Hemoglobin 6.9 g/dL (12.0-16.0)
[2017-05-15] MEDS: Pantoprazole 40 MG VIAL IVP SCH (22:00)
[2017-05-16 05:28] LABS: #Basophils 0.1 thou/uL (0.0-0.2); #Eosinphils 0.3 thou/uL (0.0-0.7); #Lymphocytes 3.2 thou/uL (1.20-3.40); #Monocytes 0.6 thou/uL (0.11-0.59); #Neutrophils 5.4 thou/uL (1.40-6.50); %Basophils 0.8 % (0.0-1.0); %Eosinophils 3.4 % (0.0-10.0); %Lymphocytes 33.2 % (21.0-51.0); %Monocytes 6.2 % (0.0-10.0); %Neutrophils 56.5 % (42.0-75.0); Hemoglobin 6.8 g/dL (12.0-16.0); Mean Corpuscular HGB CONC 35.3 g/dL (32.0-36.0); Mean Corpuscular Hemoglobin 32.4 pg (27.0-31.0); Mean Corpuscular Volume 91.8 fl (81.0-99.0); Mean Platelet Volume 7.7 fL (7.4-10.4); Platelet Count 172 thou/uL (130-400); RBC Distribution Width 13.6 % (11.5-14.5); White Blood Cell (WBC) Count 9.6 thou/uL (4.8-10.8)
[2017-05-16 05:38] LABS: Anion Gap 7 mmol/L (10-20); BUN (Urea Nitrogen) 11 mg/dL (9.8-20.1); Calc. Creatinine Clearance 123 mL/min (70-130); Calcium 7.6 mg/dL (7.8-10.44); Carbon Dioxide 24 mmol/L (23-31); Chloride 109 mmol/L (98-107); Estimated GFR-MDRD 79; Glucose 118 mg/dL (80-115); Sodium 136 mmol/L (136-145)
[2017-05-16] MEDS: D5 1/2 NS w/20 mEq KCL 1,000 ML IV SCH (09:39)
[2017-05-16] MEDS: Acetaminophen 500 MG TAB PO PRN (12:22)
[2017-05-16] MEDS ORDERED: Lorazepam 2 MG/ML VIAL SLOW IVP PRN (13:06)
[2017-05-16] MEDS ORDERED: Iopamidol 370 76% 50 ML VIAL FS ONE (13:14)
[2017-05-16] MEDS ORDERED: ISOVUE-370 76%-LOCM 1 ML ONE (13:14)
[2017-05-16] MEDS ORDERED: Morphine 4 MG/ML VIAL SLOW IVP PRN (13:19)
--- NOTE | 2017-05-16 14:28 | CON ---
DATE OF CONSULTATION: 05/16/2017 REASON FOR CONSULTATION: Chest pain. REFERRING PROVIDER: Dr. Yo HISTORY OF PRESENT ILLNESS: Ms. Clay is a pleasant 67-year-old woman who is a patient of Dr. Chan Gonzalez. She underwent coronary angiography 2 months ago and was not found to have significant tasneem nary disease. She recently underwent, on 05/14/2017, a laparoscopic partial gastrectomy with removal of a tumor. Her hemoglobin has also been decreased. She states she acutely began having chest pain this morning. The pain was in the upper epigastric region, the lower chest area. She is very painf ul to palpation. During my interview, she was seen sitting up. PAST MEDICAL HISTORY: As above including atrial fibrillation on Novel oral anticoagulation therapy, appendectomy, cholecystectomy, knee surgery, atrial flutter, hypertension. ALLERGIES: None. CURRENT MEDICATIONS: Nystatin, metoprolol, Meloxicam, lisinopril, Eliquis, and atorvastatin. REVIEW OF SYSTEMS: Ten-point review of systems is reviewed and is as above, otherwise negative. PHYSICAL EXAMINATION: VITAL SIGNS: Blood pressure 113/66, pulse 91, temperature 98.3. GENERAL: Patient is a pleasant female who is in no acute distress. The patient appears her stated ag e. NEUROLOGIC: The patient is alert and oriented times 3 with no focal neurologic deficits. HEENT: Sclerae without icterus. Mouth has moist mucous membranes with normal pallor. NECK: No JVD. Carotid upstroke brisk. No bruits bilaterally. LUNGS: Clear to auscultation with unlabored respirations. BACK: No scoliosis or kyphosis. CARDIAC: Regular rate and rhythm with normal S1 and S2. No S3 or S4 noted. No significant rubs, mur murs, thrills, or gallops noted throughout the precordium. PMI is not displaced. There is no parast ernal heave. ABDOMEN: Significant pain to mild palpation present. EXTREMITIES: 2+ femoral and 2+ dorsalis pedis pulses. No cyanosis, clubbing, or edema. SKIN: No gross abnormalities. PERTINENT LABS: Hemoglobin 6.8. IMPRESSION: 1. Chest pain. 2. Recent gastrectomy with resection of tumor. RECOMMENDATIONS: At this point, I feel Ms. Clay's symptoms are not felt to be due to underlying co ronary artery disease. She underwent coronary angiography 2 months ago and was not found to have sig nificant coronary disease. She is very painful to palpation. She is scheduled for a CT scan of the abdomen. Would hold off on anticoagulation therapy. Would recommend transfusion to hemoglobin above 8. We will continue to follow with you.
--- NOTE | 2017-05-16 14:30 | PDOC.PN ---
- Subjective Encounter Start Date: 05/16/17 Encounter Start Time: 14:28 Subjective: c/o pain in epigastrium going up under left breast -: c/o nausea/unease - Objective Resuscitation Status: Resuscitation Status FULL:Full Resuscitation Vital Signs & Weight: Vital Signs (12 hours) Temp Pulse Resp BP BP Pulse Ox 05/16/17 11:39 98.3 F 71 18 113/66 98 05/16/17 08:30 98.2 F 65 14 96 05/16/17 08:00 98.2 F 65 14 114/71 96 05/16/17 04:00 98.1 F 68 18 95/61 97 Weight Weight 227 lb 7 oz I&O: 05/15/17 05/16/17 05/17/17 06:59 06:59 06:59 Intake Total 1500 2150 1500 Balance 1500 2150 1500 Result Diagrams: 05/16/17 04:37 05/16/17 04:37 Additional Labs: Laboratory Tests 05/13/17 05/13/17 05/14/17 04:27 19:04 04:48 Hgb 9.6 L 9.2 L 6.8 L 05/15/17 05/15/17 05/15/17 03:56 09:10 15:02 Hgb 6.9 L 7.3 L 6.9 L 05/16/17 04:37 Hgb 6.8 L Phys Exam - Physical Examination uncomfortable,cluthing & rubbing L breast/abdomen HEENT: PERRLA, moist MMs, sclera anicteric, oral pharynx no lesions Neck: no nodes, no JVD, supple, full ROM Respiratory: no wheezing, no rales, no rhonchi, clear to auscultation bilateral Cardiovascular: RRR, no significant murmur Gastrointestinal: soft, positive bowel sounds TTP Musculoskeletal: no edema, pulses present Neurological: non-focal, normal sensation, moves all 4 limbs Psychiatric: normal affect, A&O x 3 Skin: no rash Dx/Plan (1) Stomach neoplasm Code(s): D49.0 - NEOPLASM OF UNSPECIFIED BEHAVIOR OF DIGESTIVE SYSTEM Status: Acute (2) Blood loss anemia Code(s): D50.0 - IRON DEFICIENCY ANEMIA SECONDARY TO BLOOD LOSS (CHRONIC) Status: Acute (3) GI bleed Code(s): K92.2 - GASTROINTESTINAL HEMORRHAGE, UNSPECIFIED Status: Resolved (4) H/O paroxysmal supraventricular tachycardia Code(s): Z86.79 - PERSONAL HISTORY OF OTHER DISEASES OF THE CIRCULATORY SYSTEM Status: Acute (5) Dyslipidemia Code(s): E78.5 - HYPERLIPIDEMIA, UNSPECIFIED Status: Chronic (6) Hypertension Code(s): I10 - ESSENTIAL (PRIMARY) HYPERTENSION Status: Chronic - Plan PT/OT, DVT proph w/SCDs Discussed w Dr. barrera.will make NPO,restart IVF and check CT A/P. -: Cardiology consulted by Dr. barrera given h/o a-fib. -: EKG done & shows NSR.Anticoag on hold -: Zofran,morphine,ativan IV prn -: H/H low still. will transfuse 1 unit PRBC. * .Monitor closely.High risk of decompensation * daily labs. * will follow Review of Systems - Review of Systems Constitutional: weakness, malaise. negative: fever, chills, sweats, other ENT: negative: Ear Pain, Ear Discharge, Nose Pain, Nose Discharge, Nose Congestion, Mouth Pain, Mouth Swelling, Throat Pain, Throat Swelling, Other Respiratory: negative: Cough, Dry, Shortness of Breath, Hemoptysis, SOB with Excertion, Pleuritic Pain, Sputum, Wheezing Cardiovascular: light headedness. negative: chest pain, palpitations, orthopnea , paroxysmal nocturnal dyspnea, edema, other Gastrointestinal: Nausea, Abdominal Pain. negative: Vomiting, Diarrhea, Constipation, Melena, Hematochezia, Other Genitourinary: negative: Dysuria, Frequency, Incontinence, Hematuria, Retention , Other Musculoskeletal: negative: Neck Pain, Shoulder Pain, Arm Pain, Back Pain, Hand Pain, Leg Pain, Foot Pain, Other Skin: negative: Rash, Lesions, Joe, Bruising, Other Neurological: negative: Weakness, Numbness, Incoordination, Change in Speech, Confusion, Seizures, Other - Medications/Allergies Allergies/Adverse Reactions: Allergies Allergy/AdvReac Type Severity Reaction Status Date / Time No Known Allergies Allergy Verified 03/01/17 21:22 Medications: Current Medications Acetaminophen (Tylenol) 500 mg PO Q6H PRN PRN Reason: Headache/Fever or Mild Pain Last Admin: 05/16/17 12:22 Dose: 500 mg Hydrocodone Bitart/Acetaminophen (Hydrocodone-Apap 7.5-325/15) 15 ml PO Q4H PRN PRN Reason: Moderate to Severe Pain (6-10) Al Hydroxide/Mg Hydroxide (Maalox) 30 ml PO Q6H PRN PRN Reason: Heartburn or Indigestion Last Admin: 05/16/17 11:43 Dose: 30 ml Albuterol/Ipratropium (Duoneb) 3 ml NEB Q4H PRN PRN Reason: Wheezing Dextrose/Water (Dextrose 50%) 25 gm SLOW IVP PRN PRN PRN Reason: Hypoglycemia Diphenhydramine HCl (Benadryl) 25 mg IVP Q6H PRN PRN Reason: Itching & Insomnia Glucagon (Glucagon) 1 mg IM PRN PRN PRN Reason: Hypoglycemia Hydralazine HCl (Apresoline) 10 mg SLOW IVP Q4H PRN PRN Reason: SBP > 170 or DBP > 100 Pantoprazole Sodium 80 mg/ (Sodium Chloride) 100 mls @ 10 mls/hr IVP INF [facility] Last Admin: 05/14/17 09:01 Dose: 100 mls Dextrose/Water (D5w) 1,000 mls @ 0 mls/hr IV .Q0M PRN; As Directed PRN Reason: Hypoglycemia Potassium Chloride/Dextrose/Sod Cl (D5 1/2 Ns W/10 Meq Kcl) 1,000 ml in 1,000 mls @ 125 mls/hr IV .Q8H [facility] Lorazepam (Ativan) 0.5 mg SLOW IVP Q6H PRN PRN Reason: Anxiety/Agitation Last Admin: 05/16/17 13:25 Dose: 0.5 mg Morphine Sulfate (Morphine) 2 mg SLOW IVP Q4H PRN PRN Reason: SEVERE PAIN Last Admin: 05/16/17 13:25 Dose: 2 mg Ondansetron HCl (Zofran) 4 mg IVP Q8H PRN PRN Reason: Nausea/Vomiting Last Admin: 05/16/17 11:43 Dose: 4 mg Pantoprazole Sodium (Protonix) 40 mg IVP 2100 [facility] Last Admin: 05/15/17 22:00 Dose: 40 mg Promethazine HCl (Phenergan) 12.5 mg IM Q2H PRN PRN Reason: Nausea/Vomiting Sodium Chloride (Flush - Normal Saline) 10 ml IVF Q12HR [facility] Last Admin: 05/16/17 09:39 Dose: Not Given Sodium Chloride (Flush - Normal Saline) 10 ml IVF PRN PRN PRN Reason: Saline Flush
[2017-05-16] MEDS: D5 1/2 NS w/10 mEq KCl 1,000 ML/1,000 ML BAG IV SCH (14:44)
--- NOTE | 2017-05-16 18:03 | CT ---
CT OF THE ABDOMEN WITH IV CONTRAST: Date: 05/16/17 INDICATION: Postop day 2 from partial gastrectomy for a gastric mass. COMPARISON: Prior exam dated 05/13/17. FINDINGS: Since the comparison study, there has been interval performance of a partial gastrectomy. A small susannah unt of free air is seen within the upper abdomen. There is hyperdense fluid surrounding the spleen, a s well as the gastrosplenic ligament which may reflect postoperative hemorrhage or hyperdense postop fluid. No evidence of splenic laceration. No overt drainable fluid collection is noted. There is some scattered gas along the anterior abdominal wall likely from port sites. Small and large bowel are of normal caliber. The visualized pancreas, adrenal glands, and kidneys are normal appeari ng. Visualized liver is unremarkable. No definite acute osseous abnormality is evident. There are sma ll bilateral pleural effusions. IMPRESSION: 1. Interval partial gastrectomy for intraluminal gastric mass seen on the comparison CT examinat ion. 2. Small amount of free air is seen within the upper abdomen, which is within normal limits for post op day 2. A small amount of dense fluid is surrounding the spleen, as well as gastrosplenic ligament, which may reflect a small amount of hemorrhage or postoperative fluid collection. No drainable fluid collection is evident. 3. Gas and inflammatory infiltration of subcutaneous tissues of the anterior abdominal wall, likely related to port sites. 3. Small bilateral pleural effusions. POS: [facility]
[2017-05-16] MEDS: Pantoprazole 40 MG VIAL IVP SCH (21:34)
--- NOTE | 2017-05-16 21:35 | EKG ---
Test Reason : Blood Pressure : / mmHG Vent. Rate : 073 BPM Atrial Rate : 073 BPM P-R Int : 160 ms QRS Dur : 094 ms QT Int : 400 ms P-R-T Axes : 073 006 118 degrees QTc Int : 440 ms Normal sinus rhythm Abnormal ECG When compared with ECG of 13-MAY-2017 04:22, (Unconfirmed) T wave inversion more evident in Lateral leads Confirmed by Rosa Isela LUNDBERG ([id number]) on 05/16/2017 9:34:49 PM Referred By: PRAFUL Confirmed By:Rosa Isela LUNDBERG
[2017-05-17] MEDS: D5 1/2 NS w/10 mEq KCl 1,000 ML/1,000 ML BAG IV SCH ×4 (00:20→16:46)
[2017-05-17 06:13] LABS: #Eosinphils 0.4 thou/uL (0.0-0.7); #Lymphocytes 2.7 thou/uL (1.20-3.40); #Monocytes 0.6 thou/uL (0.11-0.59); %Basophils 0.5 % (0.0-1.0); %Eosinophils 4.4 % (0.0-10.0); %Lymphocytes 30.6 % (21.0-51.0); %Monocytes 6.6 % (0.0-10.0); %Neutrophils 57.9 % (42.0-75.0); Hemoglobin 8.3 g/dL (12.0-16.0); Mean Corpuscular Hemoglobin 31.1 pg (27.0-31.0); Mean Corpuscular Volume 91.5 fl (81.0-99.0); Mean Platelet Volume 7.2 fL (7.4-10.4); Platelet Count 230 thou/uL (130-400); RBC Distribution Width 13.9 % (11.5-14.5); Red Blood Cell (RBC) Count 2.66 mill/uL (4.20-5.40); White Blood Cell (WBC) Count 8.7 thou/uL (4.8-10.8)
[2017-05-17 06:23] LABS: Anion Gap 8 mmol/L (10-20); BUN (Urea Nitrogen) 6 mg/dL (9.8-20.1); Calc. Creatinine Clearance 116 mL/min (70-130); Calcium 8.2 mg/dL (7.8-10.44); Carbon Dioxide 27 mmol/L (23-31); Chloride 109 mmol/L (98-107); Estimated GFR-MDRD 73; Glucose 110 mg/dL (80-115); Potassium 3.7 mmol/L (3.5-5.1); Sodium 140 mmol/L (136-145)
--- NOTE | 2017-05-17 14:42 | PDOC.PN ---
- Subjective Encounter Start Date: 05/17/17 Encounter Start Time: 14:40 Subjective: feels much better. no more AP/nausea/bloating -: some more melena today - Objective Resuscitation Status: Resuscitation Status FULL:Full Resuscitation MAR Reviewed: Yes Vital Signs & Weight: Vital Signs (12 hours) Temp Pulse Resp BP BP Pulse Ox 05/17/17 11:47 98.7 F 69 18 120/79 97 05/17/17 07:22 98.3 F 70 20 104/70 92 L 05/17/17 03:46 98.4 F 71 16 102/63 98 Weight Admit Weight 227 lb 7 oz Weight 227 lb 7 oz I&O: 05/16/17 05/17/17 05/18/17 06:59 06:59 06:59 Intake Total 2150 3000 Output Total 2 Balance 2150 2998 Result Diagrams: 05/17/17 05:34 05/17/17 05:34 Radiology Reviewed by me: Yes Phys Exam - Physical Examination Constitutional: NAD HEENT: PERRLA, moist MMs, sclera anicteric, TM's clear, oral pharynx no lesions , 2+ tonsils Neck: no nodes, no JVD, supple, full ROM Respiratory: no wheezing, no rales, no rhonchi, clear to auscultation bilateral Cardiovascular: RRR, no significant murmur, no rub, gallop Gastrointestinal: soft, non-tender, no distention, positive bowel sounds Musculoskeletal: no edema, pulses present Neurological: non-focal, normal sensation, moves all 4 limbs Psychiatric: normal affect, A&O x 3 Skin: no rash Dx/Plan (1) Stomach neoplasm Code(s): D49.0 - NEOPLASM OF UNSPECIFIED BEHAVIOR OF DIGESTIVE SYSTEM Status: Acute (2) Blood loss anemia Code(s): D50.0 - IRON DEFICIENCY ANEMIA SECONDARY TO BLOOD LOSS (CHRONIC) Status: Acute (3) GI bleed Code(s): K92.2 - GASTROINTESTINAL HEMORRHAGE, UNSPECIFIED Status: Resolved (4) H/O paroxysmal supraventricular tachycardia Code(s): Z86.79 - PERSONAL HISTORY OF OTHER DISEASES OF THE CIRCULATORY SYSTEM Status: Acute (5) Dyslipidemia Code(s): E78.5 - HYPERLIPIDEMIA, UNSPECIFIED Status: Chronic (6) Hypertension Code(s): I10 - ESSENTIAL (PRIMARY) HYPERTENSION Status: Chronic - Plan PT/OT, respiratory therapy, incentive spirometry, out of bed/ambulate, DVT proph w/SCDs H/H stable.appreciate cradiology and GS inputs. -: CT w/o any perforATION.monitor clinically -: path pending -: valerie FREEMAN tomorrow if H/H stable & cleared by GI and GS -: cont PPI.change to PO.advance diet.ambulation * . Review of Systems - Review of Systems Constitutional: weakness, malaise. negative: fever, chills, sweats, other ENT: negative: Ear Pain, Ear Discharge, Nose Pain, Nose Discharge, Nose Congestion, Mouth Pain, Mouth Swelling, Throat Pain, Throat Swelling, Other Respiratory: negative: Cough, Dry, Shortness of Breath, Hemoptysis, SOB with Excertion, Pleuritic Pain, Sputum, Wheezing Cardiovascular: negative: chest pain, palpitations, orthopnea, paroxysmal nocturnal dyspnea, edema, light headedness, other Gastrointestinal: Melena. negative: Nausea, Vomiting, Abdominal Pain, Diarrhea , Constipation, Hematochezia, Other Genitourinary: negative: Dysuria, Frequency, Incontinence, Hematuria, Retention , Other Musculoskeletal: negative: Neck Pain, Shoulder Pain, Arm Pain, Back Pain, Hand Pain, Leg Pain, Foot Pain, Other Skin: negative: Rash, Lesions, Joe, Bruising, Other Neurological: negative: Weakness, Numbness, Incoordination, Change in Speech, Confusion, Seizures, Other - Medications/Allergies Allergies/Adverse Reactions: Allergies Allergy/AdvReac Type Severity Reaction Status Date / Time No Known Allergies Allergy Verified 03/01/17 21:22 Medications: Current Medications Acetaminophen (Tylenol) 500 mg PO Q6H PRN PRN Reason: Headache/Fever or Mild Pain Last Admin: 05/16/17 12:22 Dose: 500 mg Hydrocodone Bitart/Acetaminophen (Hydrocodone-Apap 7.5-325/15) 15 ml PO Q4H PRN PRN Reason: Moderate to Severe Pain (6-10) Al Hydroxide/Mg Hydroxide (Maalox) 30 ml PO Q6H PRN PRN Reason: Heartburn or Indigestion Last Admin: 05/16/17 11:43 Dose: 30 ml Albuterol/Ipratropium (Duoneb) 3 ml NEB Q4H PRN PRN Reason: Wheezing Atorvastatin Calcium (Lipitor) 10 mg PO DAILY [facility] Dextrose/Water (Dextrose 50%) 25 gm SLOW IVP PRN PRN PRN Reason: Hypoglycemia Diphenhydramine HCl (Benadryl) 25 mg IVP Q6H PRN PRN Reason: Itching & Insomnia Glucagon (Glucagon) 1 mg IM PRN PRN PRN Reason: Hypoglycemia Hydralazine HCl (Apresoline) 10 mg SLOW IVP Q4H PRN PRN Reason: SBP > 170 or DBP > 100 Pantoprazole Sodium 80 mg/ (Sodium Chloride) 100 mls @ 10 mls/hr IVP INF [facility] Last Admin: 05/14/17 09:01 Dose: 100 mls Dextrose/Water (D5w) 1,000 mls @ 0 mls/hr IV .Q0M PRN; As Directed PRN Reason: Hypoglycemia Potassium Chloride/Dextrose/Sod Cl (D5 1/2 Ns W/10 Meq Kcl) 1,000 ml in 1,000 mls @ 125 mls/hr IV .Q8H [facility] Last Admin: 05/17/17 06:29 Dose: Not Given Lorazepam (Ativan) 0.5 mg SLOW IVP Q6H PRN PRN Reason: Anxiety/Agitation Last Admin: 05/16/17 13:25 Dose: 0.5 mg Morphine Sulfate (Morphine) 2 mg SLOW IVP Q4H PRN PRN Reason: SEVERE PAIN Last Admin: 05/16/17 13:25 Dose: 2 mg Ondansetron HCl (Zofran) 4 mg IVP Q8H PRN PRN Reason: Nausea/Vomiting Last Admin: 05/16/17 11:43 Dose: 4 mg Pantoprazole Sodium (Protonix) 40 mg IVP 2100 [facility] Last Admin: 05/16/17 21:34 Dose: 40 mg Promethazine HCl (Phenergan) 12.5 mg IM Q2H PRN PRN Reason: Nausea/Vomiting Sodium Chloride (Flush - Normal Saline) 10 ml IVF Q12HR [facility] Last Admin: 05/16/17 21:34 Dose: 10 ml Sodium Chloride (Flush - Normal Saline) 10 ml IVF PRN PRN PRN Reason: Saline Flush
[2017-05-17] MEDS: Pantoprazole 40 MG VIAL IVP SCH (20:01)
[2017-05-18] MEDS: Acetaminophen 500 MG TAB PO PRN (03:41)
[2017-05-18 05:46] LABS: #Basophils 0.1 thou/uL (0.0-0.2); #Eosinphils 0.4 thou/uL (0.0-0.7); #Lymphocytes 1.7 thou/uL (1.20-3.40); #Monocytes 0.5 thou/uL (0.11-0.59); %Basophils 0.9 % (0.0-1.0); %Eosinophils 5.5 % (0.0-10.0); %Lymphocytes 25.1 % (21.0-51.0); %Monocytes 7.6 % (0.0-10.0); %Neutrophils 60.8 % (42.0-75.0); Mean Corpuscular HGB CONC 34.3 g/dL (32.0-36.0); Mean Corpuscular Hemoglobin 31.6 pg (27.0-31.0); Mean Corpuscular Volume 92.2 fl (81.0-99.0); Mean Platelet Volume 7.1 fL (7.4-10.4); Platelet Count 255 thou/uL (130-400); RBC Distribution Width 14.3 % (11.5-14.5); Red Blood Cell (RBC) Count 2.54 mill/uL (4.20-5.40); White Blood Cell (WBC) Count 6.6 thou/uL (4.8-10.8)
[2017-05-18 06:09] LABS: Anion Gap 9 mmol/L (10-20); BUN (Urea Nitrogen) 6 mg/dL (9.8-20.1); Calc. Creatinine Clearance 127 mL/min (70-130); Calcium 8.4 mg/dL (7.8-10.44); Carbon Dioxide 25 mmol/L (23-31); Chloride 109 mmol/L (98-107); Estimated GFR-MDRD 81; Glucose 104 mg/dL (80-115); Potassium 3.9 mmol/L (3.5-5.1); Sodium 139 mmol/L (136-145)
[2017-05-18] MEDS ORDERED: Furosemide 40 MG TAB PO SCH (09:00)
[2017-05-18] MEDS ORDERED: Atorvastatin Calcium 10 MG TAB PO SCH (09:00)
[2017-05-18] MEDS ORDERED: ALPRAZolam 0.25 MG TAB PO PRN (09:36)
--- NOTE | 2017-05-18 13:50 | PDOC.PN ---
- Subjective Encounter Start Date: 05/18/17 Encounter Start Time: 13:49 Subjective: feels weak but better.nauseated after eating grits this morning -: No AP/CP - Objective Resuscitation Status: Resuscitation Status FULL:Full Resuscitation MAR Reviewed: Yes Vital Signs & Weight: Vital Signs (12 hours) Temp Pulse Resp BP BP BP Pulse Ox 05/18/17 11:11 97.8 F 64 18 123/79 97 05/18/17 07:31 98.5 F 70 16 107/66 94 L 05/18/17 03:38 98.4 F 80 16 117/70 98 Weight Admit Weight 227 lb 7 oz Weight 227 lb 7 oz I&O: 05/17/17 05/18/17 05/19/17 06:59 06:59 06:59 Intake Total 3000 1000 Output Total 2 2 Balance 2998 998 Result Diagrams: 05/18/17 04:59 05/18/17 04:59 Additional Labs: Laboratory Tests 05/13/17 05/14/17 05/15/17 04:27 04:48 03:56 BUN 54 H 31 H 19 05/16/17 05/17/17 05/18/17 04:37 05:34 04:59 BUN 11 6 L 6 L Phys Exam - Physical Examination Constitutional: NAD HEENT: PERRLA, moist MMs, TM's clear, oral pharynx no lesions Neck: no nodes, no JVD, supple, full ROM Respiratory: no wheezing, no rales, no rhonchi, clear to auscultation bilateral Cardiovascular: RRR, no significant murmur, no rub, gallop Gastrointestinal: soft, non-tender, no distention, positive bowel sounds Musculoskeletal: no edema, pulses present Neurological: non-focal, normal sensation, moves all 4 limbs Psychiatric: normal affect, A&O x 3 Skin: no rash Dx/Plan (1) Stomach neoplasm Code(s): D49.0 - NEOPLASM OF UNSPECIFIED BEHAVIOR OF DIGESTIVE SYSTEM Status: Acute Comment: Pathology pending (2) Blood loss anemia Code(s): D50.0 - IRON DEFICIENCY ANEMIA SECONDARY TO BLOOD LOSS (CHRONIC) Status: Acute Comment: H/H stable now (3) GI bleed Code(s): K92.2 - GASTROINTESTINAL HEMORRHAGE, UNSPECIFIED Status: Resolved (4) H/O paroxysmal supraventricular tachycardia Code(s): Z86.79 - PERSONAL HISTORY OF OTHER DISEASES OF THE CIRCULATORY SYSTEM Status: Acute Comment: Anticoagulation on hold (5) Dyslipidemia Code(s): E78.5 - HYPERLIPIDEMIA, UNSPECIFIED Status: Chronic (6) Hypertension Code(s): I10 - ESSENTIAL (PRIMARY) HYPERTENSION Status: Chronic - Plan out of bed/ambulate, DVT proph w/SCDs DC today but wants to wait till tomorrow for Path results -: told that Path may not be back tomorrow either but she feels weak -: and has no ride.Will wait till tomorroe and advance diet -: rpeat H/H tomorrow.if stable-will DC home w HH -: HH orders enetered * . Review of Systems - Review of Systems Constitutional: weakness, malaise. negative: fever, chills, sweats, other Eyes: negative: Pain, Vision Change, Conjunctivae Inflammation, Eyelid Inflammation, Redness, Other ENT: negative: Ear Pain, Ear Discharge, Nose Pain, Nose Discharge, Nose Congestion, Mouth Pain, Mouth Swelling, Throat Pain, Throat Swelling, Other Respiratory: negative: Cough, Dry, Shortness of Breath, Hemoptysis, SOB with Excertion, Pleuritic Pain, Sputum, Wheezing Cardiovascular: negative: chest pain, palpitations, orthopnea, paroxysmal nocturnal dyspnea, edema, light headedness, other Gastrointestinal: negative: Nausea, Vomiting, Abdominal Pain, Diarrhea, Constipation, Melena, Hematochezia, Other Genitourinary: negative: Dysuria, Frequency, Incontinence, Hematuria, Retention , Other Musculoskeletal: negative: Neck Pain, Shoulder Pain, Arm Pain, Back Pain, Hand Pain, Leg Pain, Foot Pain, Other Skin: negative: Rash, Lesions, Joe, Bruising, Other Neurological: negative: Weakness, Numbness, Incoordination, Change in Speech, Confusion, Seizures, Other - Medications/Allergies Allergies/Adverse Reactions: Allergies Allergy/AdvReac Type Severity Reaction Status Date / Time No Known Allergies Allergy Verified 03/01/17 21:22 Medications: Current Medications Acetaminophen (Tylenol) 500 mg PO Q6H PRN PRN Reason: Headache/Fever or Mild Pain Last Admin: 05/18/17 03:41 Dose: 500 mg Hydrocodone Bitart/Acetaminophen (Hydrocodone-Apap 7.5-325/15) 15 ml PO Q4H PRN PRN Reason: Moderate to Severe Pain (6-10) Al Hydroxide/Mg Hydroxide (Maalox) 30 ml PO Q6H PRN PRN Reason: Heartburn or Indigestion Last Admin: 05/16/17 11:43 Dose: 30 ml Albuterol/Ipratropium (Duoneb) 3 ml NEB Q4H PRN PRN Reason: Wheezing Alprazolam (Xanax) 0.25 mg PO BIDPRN PRN PRN Reason: Anxiety Atorvastatin Calcium (Lipitor) 10 mg PO DAILY [facility] Last Admin: 05/18/17 11:06 Dose: 10 mg Dextrose/Water (Dextrose 50%) 25 gm SLOW IVP PRN PRN PRN Reason: Hypoglycemia Diphenhydramine HCl (Benadryl) 25 mg IVP Q6H PRN PRN Reason: Itching & Insomnia Furosemide (Lasix) 40 mg PO DAILY [facility] Last Admin: 05/18/17 11:06 Dose: 40 mg Glucagon (Glucagon) 1 mg IM PRN PRN PRN Reason: Hypoglycemia Hydralazine HCl (Apresoline) 10 mg SLOW IVP Q4H PRN PRN Reason: SBP > 170 or DBP > 100 Dextrose/Water (D5w) 1,000 mls @ 0 mls/hr IV .Q0M PRN; As Directed PRN Reason: Hypoglycemia Lorazepam (Ativan) 0.5 mg SLOW IVP Q6H PRN PRN Reason: Anxiety/Agitation Last Admin: 05/16/17 13:25 Dose: 0.5 mg Morphine Sulfate (Morphine) 2 mg SLOW IVP Q4H PRN PRN Reason: SEVERE PAIN Last Admin: 05/16/17 13:25 Dose: 2 mg Ondansetron HCl (Zofran) 4 mg IVP Q8H PRN PRN Reason: Nausea/Vomiting Last Admin: 05/16/17 11:43 Dose: 4 mg Pantoprazole Sodium (Protonix) 40 mg IVP 2100 [facility] Last Admin: 05/17/17 20:01 Dose: Not Given Promethazine HCl (Phenergan) 12.5 mg IM Q2H PRN PRN Reason: Nausea/Vomiting Sodium Chloride (Flush - Normal Saline) 10 ml IVF Q12HR [facility] Last Admin: 05/18/17 11:07 Dose: Not Given Sodium Chloride (Flush - Normal Saline) 10 ml IVF PRN PRN PRN Reason: Saline Flush
[2017-05-18 15:47] VITALS: BP 104/72; TEMP 98.4
--- NOTE | 2017-05-19 00:29 | DIS ---
DISCHARGE DIAGNOSES: 1. Upper gastrointestinal bleed. 2. Gastrointestinal stromal tumor, atrial fibrillation. PROCEDURES DURING ADMISSION: Esophagogastroduodenoscopy with biopsy and cauterization of mass, lapar oscopic partial gastrectomy, blood transfusion. HOSPITAL COURSE: The patient was admitted with complaints of melena and hematemesis. GI was consult ed, and an EGD was performed showing a large 4-5 cm mass in the distal gastric body. General Surgery was consulted. She was taken to the operating room where she underwent a laparoscopic partial gastr ectomy. I talked to the pathologist, who says the tumor is a gastrointestinal stromal tumor. It william ears as though the margins are clear. She is tolerating full liquids well. Her pain is controlled o n p.o. meds. She is discharged home tolerating that, on hydrocodone and Zofran. She will follow up with me in 2 weeks. She will stay on a liquid diet until she sees me.
== END 2017-05-18 18:19 | disposition home health service (06) | DRG 542 ==
LOC: ERS 03:53 → ERHOLD 05:00 → 2NO 11:44 → ONC 21:51 → SURG B 05-14 16:49
PROVIDERS: ADMIT Internal Medicine; ATTEND Internal Medicine
PROC: 0DB68ZX Excision of Stomach, Via Natural or Artificial Opening Endoscopic, Diagnostic (ICD-10-PCS; 2017-05-13)
PROC: 0W3P8ZZ Control Bleeding in Gastrointestinal Tract, Via Natural or Artificial Opening Endoscopic (ICD-10-PCS; 2017-05-13)
PROC: 0DB64ZZ Excision of Stomach, Percutaneous Endoscopic Approach (ICD-10-PCS; principal; 2017-05-14)
PROC: 0DJ68ZZ Inspection of Stomach, Via Natural or Artificial Opening Endoscopic (ICD-10-PCS; 2017-05-14)
PROC: 30233N1 Transfusion of Nonautologous Red Blood Cells into Peripheral Vein, Percutaneous Approach (ICD-10-PCS; 2017-05-16)
DX: C49.A2 Gastrointestinal stromal tumor of stomach (principal); K25.4 Chronic or unspecified gastric ulcer with hemorrhage; I48.91 Unspecified atrial fibrillation; S36.113A Laceration of liver, unspecified degree, initial encounter; D62 Acute posthemorrhagic anemia; I48.92 Unspecified atrial flutter; E66.9 Obesity, unspecified; K31.9 Disease of stomach and duodenum, unspecified; E78.5 Hyperlipidemia, unspecified; I10 Essential (primary) hypertension; Z86.79 Personal history of other diseases of the circulatory system; Z79.01 Long term (current) use of anticoagulants; Z68.37 Body mass index [BMI] 37.0-37.9, adult; F41.9 Anxiety disorder, unspecified; G89.29 Other chronic pain; M25.519 Pain in unspecified shoulder; M25.569 Pain in unspecified knee
CPT/HCPCS: 36415; 36430; 74022; 74160; 74177; 74241; 80048; 80053; 82274; 82553; 83735; 84484; 85025; 85610; 85730; 86850; 86900; 86901; 88305; 88309; 88312; 88341; 88342; 93005; 93010; 96374; 96375; 96376; A4216; C9113; J1100; J1885; J2001; J2060; J2270; J2274; J2405; J2704; J3010; J7050; P9016

== ENCOUNTER 2017-09-07 09:44 | Day surgery (SDC) | payer MEDICARE, OTHER ==
[2017-09-06 16:22] VITALS: BMI 31.1
--- NOTE | 2017-09-07 13:47 | OP ---
DATE OF PROCEDURE: 09/07/2017 PROCEDURES: EGD with biopsy, colonoscopy with polypectomy. INDICATION FOR PROCEDURE: Midepigastric abdominal pain, GERD, screening for malignant neoplasm of th e colon (family history of colon cancer in a first-degree relative diagnosed prior to the age of 60). DESCRIPTION OF PROCEDURE: After the risks and benefits of the procedure were explained to the patien t including risks of bleeding, infection, perforation, reaction to anesthesia and/or pain, informed c onsent was obtained. The patient was then taken to the endoscopy suite where deep sedation was admin istered via propofol and anesthesia support. Once adequate sedation was achieved, the standard gastr oscope was introduced into the mouth with intubation of the esophagus, stomach and the proximal small intestine with the findings listed below. After completion of this portion of the examination, all equipments were removed and the bed was rotated approximately 180 degrees. After an external examina tion of the anal orifice and digital rectal examination, the standard colonoscope was then introduced into the rectum and advanced to the cecum easily without difficulty, but did require some manual pre ssure of the abdomen to facilitate passage of the scope. The quality of the prep was good with a ramakrishna r amount of adherent stool that was amenable to aggressive irrigation and suctioning. The patient to lerated the procedure well with no immediate perioperative complications. EGD FINDINGS: ESOPHAGUS: Normal appearing mucosa was seen in the proximal and mid esophagus; however, in the dista l esophagus, 2 linear erosions were seen extending proximally from the gastroesophageal junction appr oximately 2-3 cm; however, these erosions did not encompass multiple esophageal folds and were not ci rcumferential. The gastroesophageal junction was very patulous with no difficulty with passage of th e standard gastroscope and no evidence of strictures. There was no further evidence of ulcerations, mass lesions or active/recent bleeding in this area. STOMACH: Surgical change associated with a partial gastrectomy/possible Billroth I was seen upon ent ry into the stomach. The mucosa of the cardia, fundus and body appeared diffusely erythematous with a moderate degree of erythema within the mucosa itself. Multiple biopsies were taken and placed in a specimen jar for evaluation. Otherwise, normal appearing mucosa was seen in the gastric antrum and incisura. There was no evidence of erosions, ulcerations, mass lesions or active/recent bleeding see n within the stomach. DUODENUM: Normal appearing mucosa was seen in the duodenal bulb and second portion of the duodenum. There was no evidence of erosions, ulcerations, mass lesions or active/recent bleeding. However, a mild to moderate amount of bile acid was seen refluxing from the duodenum into the distal stomach. IMPRESSION: 1. LA grade B reflux mediated erosive esophagitis. 2. Surgical change consistent with partial gastrectomy/Billroth I seen during this examination. 3. Diffuse mucosal erythema of the proximal stomach concerning for underlying pathology versus bile acid reflux. COLONOSCOPY FINDINGS: Digital rectal exam normal. COLON FINDINGS: Normal appearing mucosa was seen in the cecum as well as at the appendiceal orifice and ileocecal valve. Normal appearing mucosa was also seen in the ascending colon; however, a 2 mm p olyp was seen in the distal ascending/proximal transverse colon and completely removed with jumbo for ceps. It was placed in a specimen jar and retrieved for evaluation. Multiple small diverticula were seen in the transverse, descending and sigmoid colon. Otherwise, normal appearing mucosa was seen i n these regions. Two additional polyps measuring 2 mm in size were seen in the sigmoid colon and com pletely removed with jumbo forceps. They were placed in a specimen jar and sent for evaluation. Nor mal appearing mucosa was seen in the rectum; however, small internal hemorrhoids were seen on rectal retroflexion. IMPRESSION: 1. A 2 mm polyp in the distal ascending/proximal transverse colon status post jumbo forceps. 2. A 2-3 mm polyp seen in the sigmoid colon, status post jumbo forceps. 3. Moderate pancolonic diverticulosis. 4. Small internal hemorrhoids. RECOMMENDATIONS: 1. We will follow up on the biopsy results with repeat EGD and/or colonoscopy based on the pathology results. 2. Colonoscopy interval to be determined by the polyp results, but would not repeat in no greater th an 5 years given her family history of colon cancer. 3. We would continue PPI daily given evidence of reflux esophagitis; however, we will place consider ation for treatment of bile acid reflux as well. 4. We would place the patient on the higher fiber diet given the presence of diverticulosis and inte rnal hemorrhoids. 5. Follow up in the GI clinic in approximately 3 weeks (already scheduled for 10/04/2017).
== END 2017-09-07 13:43 | disposition home or self-care (01) ==
LOC: SDC 09:44
PROVIDERS: ATTEND Internal Medicine
PROC: 0DBK8ZX Excision of Ascending Colon, Via Natural or Artificial Opening Endoscopic, Diagnostic (ICD-10-PCS; principal; 2017-09-07)
PROC: 0DBN8ZX Excision of Sigmoid Colon, Via Natural or Artificial Opening Endoscopic, Diagnostic (ICD-10-PCS; 2017-09-07)
PROC: 0DB68ZX Excision of Stomach, Via Natural or Artificial Opening Endoscopic, Diagnostic (ICD-10-PCS; 2017-09-07)
DX: Z12.11 Encounter for screening for malignant neoplasm of colon (principal); D12.2 Benign neoplasm of ascending colon; D12.5 Benign neoplasm of sigmoid colon; K57.30 Diverticulosis of large intestine without perforation or abscess without bleeding; K64.8 Other hemorrhoids; K29.50 Unspecified chronic gastritis without bleeding; K21.0 Gastro-esophageal reflux disease with esophagitis; E78.00 Pure hypercholesterolemia, unspecified; I48.91 Unspecified atrial fibrillation; F41.9 Anxiety disorder, unspecified; M19.90 Unspecified osteoarthritis, unspecified site; Z79.82 Long term (current) use of aspirin; Z79.899 Other long term (current) drug therapy; Z80.0 Family history of malignant neoplasm of digestive organs
CPT/HCPCS: 88305; 88312

== ENCOUNTER 2017-12-07 22:37 | Observation (INO) | payer MEDICARE, OTHER ==
[2017-12-07 23:14] LABS: #Basophils 0.1 thou/uL (0.0-0.2); #Eosinphils 0.2 thou/uL (0.0-0.7); #Lymphocytes 2.7 thou/uL (1.20-3.40); #Monocytes 0.5 thou/uL (0.11-0.59); #Neutrophils 3.8 thou/uL (1.40-6.50); %Basophils 1.4 % (0.0-1.0); %Eosinophils 2.9 % (0.0-10.0); %Lymphocytes 36.9 % (21.0-51.0); %Monocytes 6.9 % (0.0-10.0); %Neutrophils 51.9 % (42.0-75.0); Hemoglobin 12.9 g/dL (12.0-16.0); Mean Corpuscular HGB CONC 32.3 g/dL (32.0-36.0); Mean Platelet Volume 7.8 fL (7.4-10.4); Platelet Count 290 thou/uL (130-400); RBC Distribution Width 11.6 % (11.5-14.5); Red Blood Cell (RBC) Count 4.17 mill/uL (4.20-5.40); White Blood Cell (WBC) Count 7.2 thou/uL (4.8-10.8)
[2017-12-07 23:38] LABS: ALT (SGPT) 13 U/L (8-55); AST (SGOT) 16 U/L (5-34); Alkaline Phosphatase 66 U/L (40-150); Anion Gap 11 mmol/L (10-20); BUN (Urea Nitrogen) 12 mg/dL (9.8-20.1); Bilirubin, Total 0.4 mg/dL (0.2-1.2); Calc. Creatinine Clearance 0 mL/min (70-130); Calcium 9.3 mg/dL (7.8-10.44); Carbon Dioxide 26 mmol/L (23-31); Chloride 108 mmol/L (98-107); Estimated GFR-MDRD 65; Glucose 105 mg/dL (80-115); Potassium 3.7 mmol/L (3.5-5.1); Sodium 141 mmol/L (136-145)
[2017-12-07 23:43] LABS: CKMB 0.6 ng/mL (0-6.6); Troponin I Less than 0.010 ng/mL (< 0.028)
[2017-12-08] MEDS ORDERED: Acetaminophen 500 MG TAB ONE (00:28)
[2017-12-08] MEDS ORDERED: Ondansetron ODT 4 MG TAB ONE (00:32)
[2017-12-08] MEDS ORDERED: Bisacodyl 5 MG TAB PO PRN (00:59)
[2017-12-08] MEDS ORDERED: Zolpidem Tartrate 5 MG TAB PO PRN (00:59)
[2017-12-08] MEDS ORDERED: Sodium Chloride 0.9% 1,000 ML IV SCH (01:00)
[2017-12-08] MEDS ORDERED: Ondansetron ODT 4 MG TAB SL PRN (02:18)
[2017-12-08] MEDS ORDERED: Ondansetron HCl/PF 4 MG/2 ML Vial IVP PRN (02:18)
[2017-12-08 02:33] LABS: Troponin I Less than 0.010 ng/mL (< 0.028)
[2017-12-08] MEDS ORDERED: Cyclobenzaprine 10 MG TAB PO PRN (03:11)
[2017-12-08] MEDS: Acetaminophen 325 MG TAB PO PRN ×2 (04:10→08:30)
[2017-12-08 04:27] VITALS: BMI 30.6
[2017-12-08] MEDS: Nitroglycerin 2% Ointment 1 INCH/1 GM Packet TOP SCH ×2 (04:32→13:33)
[2017-12-08 05:11] LABS: #Basophils 0.1 thou/uL (0.0-0.2); #Eosinphils 0.2 thou/uL (0.0-0.7); #Lymphocytes 2.6 thou/uL (1.20-3.40); #Monocytes 0.5 thou/uL (0.11-0.59); #Neutrophils 2.9 thou/uL (1.40-6.50); %Basophils 1.2 % (0.0-1.0); %Eosinophils 3.5 % (0.0-10.0); %Lymphocytes 41.4 % (21.0-51.0); %Monocytes 8.4 % (0.0-10.0); %Neutrophils 45.5 % (42.0-75.0); Hemoglobin 11.4 g/dL (12.0-16.0); Mean Corpuscular HGB CONC 32.1 g/dL (32.0-36.0); Mean Corpuscular Hemoglobin 30.7 pg (27.0-31.0); Mean Corpuscular Volume 95.8 fL (78.0-98.0); Mean Platelet Volume 7.7 fL (7.4-10.4); Platelet Count 238 thou/uL (130-400); RBC Distribution Width 11.6 % (11.5-14.5); Red Blood Cell (RBC) Count 3.73 mill/uL (4.20-5.40); White Blood Cell (WBC) Count 6.3 thou/uL (4.8-10.8)
[2017-12-08 05:24] LABS: Anion Gap 11 mmol/L (10-20); BUN (Urea Nitrogen) 13 mg/dL (9.8-20.1); Calc. Creatinine Clearance 96 mL/min (70-130); Carbon Dioxide 27 mmol/L (23-31); Cardiac Risk 3.3 (Less than 4.5); Chloride 109 mmol/L (98-107); Cholesterol 191 mg/dl (< 200 Desired); Estimated GFR-MDRD 76; Glucose 95 mg/dL (80-115); HDL Cholesterol 58 mg/dL (>60 Neg Risk); LDL Cholesterol, Calculated 118 mg/dL; Potassium 3.7 mmol/L (3.5-5.1); Sodium 143 mmol/L (136-145); Triglycerides 74 mg/dL (Less than 150)
[2017-12-08 05:26] LABS: Troponin I Less than 0.010 ng/mL (< 0.028)
--- NOTE | 2017-12-08 08:06 | HP ---
CHIEF COMPLAINT: Palpitations. HISTORY OF PRESENT ILLNESS: This is a 67-year-old female with past medical history of atrial fibrillation, status post ablation, hypertension, arthritis being admitted for palpitations which started on the day of admission. Per the patient, a couple of days prior to this admission, her heart rate has been in the 40s and 50s. The patient stated that she was asymptomatic and did not have any issues; however, the patient was called by her tele nurse who stated that because her heart rate was in the 40s she was supposed to schedule an appointment to see her heart doctor on Tuesday; however, the patient states that on the day of this admission, her heart rate raised to 101-107 and she called her grounds restoration specialist, who suggested that she should take Multaq that he had prescribed her. Per the patient, she never takes the Multaq; however, the Multaq was given to her, so when her heart rate goes up, she can take it. Therefore, patient states that she followed the instruction per her grounds restoration specialist by taking the Multaq; however, her heart rate was still 101. The patient stated that she became a little anxious and started to check her blood pressure and she noted that her blood pressure was also now elevated and this prompted the patient to come to our hospital to be evaluated. Per electronic medical records, the patient follows with her PCP, Dr. Nolen and software validation engineer, Dr. Gonzalez. The patient states that she takes her medication as instructed and she is very compliant. The patient denies any vomiting, chest pain, shortness of breath, abdominal pain, back pain. REVIEW OF SYSTEMS: Positive for palpitations. Otherwise, as documented in the HPI. All other systems were reviewed and are negative. PAST MEDICAL HISTORY: Atrial fibrillation, status post ablation, arthritis, hypertension. FAMILY HISTORY: Reviewed and noncontributory to this visit. PAST SURGICAL HISTORY: Cholecystectomy, left knee surgery and tonsillectomy. PSYCHIATRIC HISTORY: Anxiety. SOCIAL HISTORY: The patient denies any illicit drug use. The patient denies any smoking history or drinking history. ALLERGIES: No known drug allergies. MEDICATIONS: The patient takes furosemide 40 and potassium 75. PHYSICAL EXAMINATION: VITAL SIGNS: Blood pressure is 153/91, pulse of 98, respiratory rate of 18, temperature of 98, O2 saturation of 99. GENERAL: The patient is lying in bed, appears anxious, alert, oriented x3, not in any acute distress. HEENT: Normocephalic, atraumatic. Pupils are equal and round, and reactive to light. Extraocular movements are intact. No scleral icterus. NECK: No JVD. Trachea is midline. No tenderness. Full range of motion. LUNGS: Clear to auscultation bilateral. No wheezing, no rales, no rhonchi is appreciated. CARDIOVASCULAR: Positive S1, S2. Regular rate and rhythm. No murmurs, no gallops or rubs appreciated. ABDOMEN: Soft, nontender, nondistended, positive bowel sounds in all quadrants. EXTREMITIES: The patient is has 5/5 upper extremity strength, 5/5 lower extremity strength, good pulses bilaterally at the upper and lower extremities bilaterally. SKIN: Warm, dry, and intact. PSYCHIATRIC: The patient appears anxious. LABORATORY DATA: WBC 7.2, hemoglobin 12.9, hematocrit is 40.0, platelet count is 290. Sodium 141, potassium is 3.7, chloride 108, carbon dioxide 26, anion gap of 11, BUN is 12, creatinine is 0.87, AST 16, ALT 13. Troponin is less than 0.010 x2. TSH is 4.3. ASSESSMENT AND PLAN: 1. This is a 67-year-old female with past medical history significant for arrhythmias being admitted for palpitations. At this time the patient is going to be admitted to the observation unit. We will order echo. We will get Cardiology and the patient will benefit from possibly grounds restoration specialist consultation. We will follow up with software validation engineer's recommendations. We will continue patient on her home medications. The patient has been started on aspirin. We will continue aspirin. 2. History of hypertension. We will continue patient on her home medications. 3. Deep venous thrombosis and gastrointestinal prophylaxis. [facility]
[2017-12-08] MEDS ORDERED: Aspirin 325 MG TAB PO SCH (09:00)
[2017-12-08] MEDS ORDERED: Famotidine 20 MG TAB PO SCH (09:00)
[2017-12-08] MEDS ORDERED: Enoxaparin Sodium 40 MG/0.4 ML SYRINGE SC SCH (09:00)
[2017-12-08 15:57] VITALS: BP 139/65; TEMP 98.9
--- NOTE | 2017-12-08 21:20 | CON ---
DATE OF CONSULTATION: 12/08/2017 REQUESTING PHYSICIAN: Dr. Gonzalez. REASON FOR CONSULTATION: Tachycardia and palpitations. HISTORY OF PRESENT ILLNESS: This is a 67-year-old woman with a history of atrial arrhythmias. She u nderwent an atrial fibrillation ablation and attempt at induction of atrial arrhythmias back in 03/12 17. This was a second ablation for her. She had a prior ablation in 2014. Since then, she has been monitored and for the most part has remained in normal sinus rhythm. In September, she had a tracing o f a tachycardia about 110 beats per minute, mostly her heart rates are in the 40s and 50s. Yesterday , she began to have what she describes as hard beats and felt that she may have been tachycardic. Suzan parker came here to the hospital and was found to be normal sinus rhythm. She has not had any tachycardia s here. Evaluation of the electrograms that she sent yesterday all show normal sinus rhythm. Echoca rdiogram shows normal left ventricular function. PAST MEDICAL HISTORY: Significant for hypertension, atrial fibrillation and flutter, arthritis, card iomegaly. PAST SURGICAL HISTORY: Cholecystectomy, tonsillectomy, and knee surgery. ALLERGIES: She has no known drug allergies. CURRENT MEDICATIONS: Include enoxaparin, famotidine, Ambien while in the hospital. SOCIAL HISTORY: Denies any alcohol, tobacco or drugs. FAMILY HISTORY: Noncontributory. REVIEW OF SYSTEMS: A 12-point review of systems is otherwise unremarkable. She has had some chest p ain earlier today. No fevers, chills, nausea, vomiting, diarrhea, change in hearing, taste, vision, smell, abdominal discomfort, ataxia, depression or anxiety. PHYSICAL EXAMINATION: GENERAL: Comfortable in no acute distress. She is lying flat. VITAL SIGNS: Blood pressure is 139/60, heart rate is 50 and regular. NECK: Reveals no increased JVD. HEART: Regular rate. Normal S1, S2. LUNGS: Clear to auscultation. ABDOMEN: Soft, nontender. EXTREMITIES: No clubbing, cyanosis or edema. LABORATORY STUDIES: A 12-lead ECG shows normal sinus rhythm. There is baseline artifact, poor R-wav e progression, nonspecific ST and T-wave abnormalities. IMPRESSION: Palpitations. RECOMMENDATIONS: It appears that Ms. Clay has palpitations, but these seem to be associated with n ormal sinus rhythm. It seems possible that these may be atrial premature ventricular premature beats , although we have not captured and I have recommended she continue following up with Dr. Nolen as an outpatient. No medication changes at the current time and just have her follow up. She already has an appointment on Tuesday next week, which I have recommended she keep. From the EP perspective, she may be discharged from the hospital.
--- NOTE | 2017-12-09 10:51 | DIS ---
DATE OF ADMISSION: 12/07/2017 DATE OF DISCHARGE: 12/08/2017 DISCHARGE DIAGNOSES: 1. Palpitations, resolved. 2. History of hypertension, stable. 3. History of paroxysmal supraventricular tachycardia, remains in sinus rhythm at this time, stable. 4. History of non-ST elevation PR, stable. 5. History of status post radiofrequency ablation operation for arrhythmia. 6. Stomach neoplasm. 7. Dyslipidemia. CONSULTATIONS: Cardiology Services, Dr. Gonzalez; EP Service, Dr. Cali. LABORATORY DATA AND DIAGNOSTIC IMAGING: WBC 6.3, RBC 3.73, hemoglobin 11.4, sodium 143 and potassium 3.7. Troponins less than 0.010 x3. Lipid panel unremarkable. Echocardiogram shows left ventricula r size normal with an ejection fraction visually estimated at 55%-60%, mild to moderate mitral regurg itation is present, mild to moderate aortic stenosis noted, mild tricuspid regurgitation, PA systolic pressure, mild to moderately elevated with no evidence of any pericardial effusion noted. HOSPITAL COURSE: This is a 67-year-old female who was admitted for palpitations, she has past medica l history of atrial fibrillation, SVT status post ablation, hypertension, and arthritis. During her hospital stay, Cardiology Services were consulted, which included Dr. Gonzalez, her primary cardiologis t. Serial troponins were obtained; however, were within normal limits x3. Dr. Gonzalez felt that a co nsult should be placed for her EP physician, Dr. Cali who came and evaluated the patient. He had de termined that she had remained in sinus rhythm throughout the hospital course. She had no further sy mptoms of chest pain, shortness of breath, or palpitations. Her vital signs remained stable. He had determined that no further need to change any home medications at this time. Dr. Cali does have a followup appointment with patient on Tuesday12/13/2017, he had felt that patient should have this fo llowup appointment and see him as outpatient. An echocardiogram was obtained during her stay and rev ealed an ejection fraction of 55%-60%. She was seen and examined prior to discharge with at bedside, it was explained to her that her palpitations resolved and she had no further chest pain, fu rther workup while she has been here has been unremarkable and therefore she is stable for discharge and we will follow up with EP physician, Dr. Cali at 12/13/2017. She had verbalized her understandi ng of the plan and agreed to discharge on 12/08/2017. DISCHARGE MEDICATIONS: 1. Aspirin 81 mg daily. 2. Multaq 400 mg p.o. p.r.n. for elevated heart rate. 3. Furosemide 40 mg daily. 4. Multivitamin daily. 5. Omeprazole 40 mg daily. 6. Zofran 4 mg every 6 hours as needed for nausea. 7. Potassium chloride 20 mEq tablet daily. FOLLOWUP: The patient is to follow up with her primary care physician, Dr. Solis 1-2 weeks, she is also to follow up with her primary shorthand teacher Dr. Gonzalez in 2 weeks and EP physician Dr. Cali on Tuesday12/13/2017. ACTIVITY: As tolerated. DIET: Healthy heart diet. CONDITION ON DISCHARGE: Stable. DISPOSITION: To home 12/08/2017.
== END 2017-12-08 17:27 | disposition home or self-care (01) ==
LOC: ERS 22:37 → 2SW 12-08 02:10
PROVIDERS: ADMIT Internal Medicine; ATTEND Internal Medicine
DX: R00.2 Palpitations (principal); I48.91 Unspecified atrial fibrillation; I48.92 Unspecified atrial flutter; I25.2 Old myocardial infarction; E78.5 Hyperlipidemia, unspecified; I47.1 Supraventricular tachycardia; I35.0 Nonrheumatic aortic (valve) stenosis; I34.0 Nonrheumatic mitral (valve) insufficiency; I36.1 Nonrheumatic tricuspid (valve) insufficiency; I10 Essential (primary) hypertension; M19.90 Unspecified osteoarthritis, unspecified site; F41.9 Anxiety disorder, unspecified; Z79.82 Long term (current) use of aspirin; Z79.899 Other long term (current) drug therapy; Z98.890 Other specified postprocedural states
CPT/HCPCS: 80048; 80053; 80061; 82553; 84443; 84484 ×3; 85025 ×2; 93005; 93306; 96372; 96374; 99285; G0378; 36415; J1650; J2405; Q0162

== ENCOUNTER 2017-12-26 11:03 | Day surgery (SDC) | payer MEDICARE, OTHER ==
[2017-12-23 16:01] VITALS: BMI 30.1
[2017-12-26 12:20] LABS: #Basophils 0.1 thou/uL (0.0-0.2); #Eosinphils 0.1 thou/uL (0.0-0.7); #Lymphocytes 2.5 thou/uL (1.20-3.40); #Monocytes 0.5 thou/uL (0.11-0.59); #Neutrophils 2.7 thou/uL (1.40-6.50); %Eosinophils 2.4 % (0.0-10.0); %Lymphocytes 42.5 % (21.0-51.0); %Monocytes 7.7 % (0.0-10.0); %Neutrophils 45.4 % (42.0-75.0); Mean Corpuscular HGB CONC 32.6 g/dL (32.0-36.0); Mean Corpuscular Hemoglobin 31.3 pg (27.0-31.0); Mean Corpuscular Volume 96.1 fL (78.0-98.0); Mean Platelet Volume 7.6 fL (7.4-10.4); Platelet Count 279 thou/uL (130-400); RBC Distribution Width 11.4 % (11.5-14.5); Red Blood Cell (RBC) Count 4.17 mill/uL (4.20-5.40); White Blood Cell (WBC) Count 5.9 thou/uL (4.8-10.8)
[2017-12-26 12:30] LABS: Prothrombin Time 13.2 SEC (12.0-14.7)
[2017-12-26] MEDS ORDERED: Lidocaine 1% w/Epinephrine 1:100K 30 ML VIAL ONE (12:31)
[2017-12-26 12:40] LABS: Anion Gap 8 mmol/L (10-20); BUN (Urea Nitrogen) 10 mg/dL (9.8-20.1); Calc. Creatinine Clearance 88 mL/min (70-130); Calcium 9.5 mg/dL (7.8-10.44); Carbon Dioxide 31 mmol/L (23-31); Chloride 105 mmol/L (98-107); Estimated GFR-MDRD 69; Glucose 89 mg/dL (80-115); Potassium 3.6 mmol/L (3.5-5.1); Sodium 140 mmol/L (136-145)
--- NOTE | 2017-12-26 13:05 | OP ---
REASON FOR PROCEDURE: Ms. Clay is a 67-year-old woman with history of atrial arrhythmias who has r ecurrent palpitation sensations and will require long-term monitoring, prior history of GI bleed as p er history of SVT. She is here for a LINQ recorder implantation. PROCEDURE: The precordial area was prepped, draped and anesthetized using subcutaneous lidocaine. A fter adequate prep and drape, using the standard LINQ insertion tool kit, an incision was made in the 4th intercostal space and a LINQ device was implanted. The wound was closed with Dermabond. CONCLUSION: Successful LINQ recorder implant. PLAN: Routine followup for monitoring.
--- NOTE | 2017-12-26 16:58 | EKG ---
Test Reason : PREOP Blood Pressure : / mmHG Vent. Rate : 047 BPM Atrial Rate : 047 BPM P-R Int : 184 ms QRS Dur : 100 ms QT Int : 494 ms P-R-T Axes : 091 003 058 degrees QTc Int : 437 ms Marked sinus bradycardia Possible Lateral infarct (cited on or before 07-DEC-2017) Nonspecific ST-T changes Abnormal ECG When compared with ECG of 07-DEC-2017 22:49, Nonspecific T wave abnormality, worse in Anterior leads Confirmed by DR. Thu ROSA ([id number]) on 12/26/2017 4:57:31 PM Referred By: DAVID Confirmed By:DR. Thu ROSA
== END 2017-12-26 13:35 | disposition home or self-care (01) ==
LOC: SDC 11:03
PROVIDERS: ATTEND Internal Medicine Cardiovascular Disease
PROC: 0JH632Z Insertion of Monitoring Device into Chest Subcutaneous Tissue and Fascia, Percutaneous Approach (ICD-10-PCS; principal; 2017-12-26)
DX: R00.2 Palpitations (principal); I48.0 Paroxysmal atrial fibrillation; I48.3 Typical atrial flutter; F41.9 Anxiety disorder, unspecified; E66.9 Obesity, unspecified; Z68.30 Body mass index [BMI] 30.0-30.9, adult; Z79.82 Long term (current) use of aspirin; Z79.899 Other long term (current) drug therapy; Z98.890 Other specified postprocedural states
CPT/HCPCS: 33282; 80048; 85025; 85610; 85730; 93005; C1764; 36415; 93010; J2001

== ENCOUNTER 2018-03-24 16:04 | Emergency (ER) | payer MEDICARE, OTHER ==
--- NOTE | 2018-03-24 16:32 | RAD ---
2 VIEWS CHEST: Date: 03/24/18 PROVIDED CLINICAL HISTORY: Chest pain. FINDINGS: Comparison with 03/29/17. Cardiac and mediastinal silhouette is unchanged in appearance. Lungs appear clear. No pleural fluid o r pneumothorax apparent. Degenerative changes involve the thoracic spine. Implanted loop recorder dev ice overlies the left chest. IMPRESSION: No evidence for an acute cardiopulmonary process. POS: [facility]
[2018-03-24 16:33] LABS: #Basophils 0.1 thou/uL (0.0-0.2); #Eosinphils 0.1 thou/uL (0.0-0.7); #Lymphocytes 2.2 thou/uL (1.20-3.40); #Monocytes 0.4 thou/uL (0.11-0.59); #Neutrophils 4.3 thou/uL (1.40-6.50); %Basophils 1.4 % (0.0-1.0); %Lymphocytes 30.8 % (21.0-51.0); %Monocytes 5.8 % (0.0-10.0); %Neutrophils 60.1 % (42.0-75.0); Hemoglobin 14.1 g/dL (12.0-16.0); Mean Corpuscular HGB CONC 32.6 g/dL (32.0-36.0); Mean Corpuscular Hemoglobin 31.2 pg (27.0-31.0); Mean Corpuscular Volume 95.7 fL (78.0-98.0); Mean Platelet Volume 7.9 fL (7.4-10.4); Platelet Count 275 thou/uL (130-400); RBC Distribution Width 11.3 % (11.5-14.5); Red Blood Cell (RBC) Count 4.52 mill/uL (4.20-5.40); White Blood Cell (WBC) Count 7.2 thou/uL (4.8-10.8)
[2018-03-24 17:47] LABS: ALT (SGPT) 11 U/L (8-55); AST (SGOT) 16 U/L (5-34); Albumin 4.7 g/dL (3.4-4.8); Alkaline Phosphatase 80 U/L (40-150); Anion Gap 12 mmol/L (10-20); BUN (Urea Nitrogen) 15 mg/dL (9.8-20.1); Bilirubin, Total 0.4 mg/dL (0.2-1.2); Calc. Creatinine Clearance 0 mL/min (70-130); Calcium 10.3 mg/dL (7.8-10.44); Carbon Dioxide 31 mmol/L (23-31); Chloride 102 mmol/L (98-107); Estimated GFR-MDRD 60; Globulin 2.9 g/dL (2.4-3.5); Glucose 104 mg/dL (80-115); Potassium 4.5 mmol/L (3.5-5.1); Protein, Total 7.6 g/dL (6.0-8.3); Sodium 140 mmol/L (136-145)
[2018-03-24] MEDS ORDERED: Ibuprofen 200 MG TAB ONE (17:48)
[2018-03-24] MEDS ORDERED: Ondansetron ODT 4 MG TAB ONE (17:48)
[2018-03-24 18:10] LABS: Bilirubin Negative (Negative); Blood, Urine Negative (Negative); Clarity CLOUDY (Clear); Glucose, Urine (Dipstick) Negative (Negative); Leukocyte Small (Negative); Nitrite Negative (Negative); Protein, Urine (Dipstick) Negative (Neg-Trace); Specific Gravity, Urine 1.017 (1.002-1.036); Urobilinogen 0.2 mg/dL (0.2-1.0); pH, Urine 7.5 (5.0-9.0)
[2018-03-24 18:12] LABS: Bacteria/HPF None Seen HPF (None Seen); Hyaline Casts/LPF 0-3 HYALINE CAST LPF (0-3 Hyaline); Pathc Cast-AUWi Flag 0.29 (0-2.49); RBC/HPF 0-3 HPF (0-3); Squamous Epithelial 0-3 HPF (0-3)
--- NOTE | 2018-04-01 16:00 | EKG ---
Test Reason : Blood Pressure : / mmHG Vent. Rate : 064 BPM Atrial Rate : 064 BPM P-R Int : 168 ms QRS Dur : 090 ms QT Int : 430 ms P-R-T Axes : 094 017 065 degrees QTc Int : 443 ms Normal sinus rhythm Normal ECG Confirmed by RAUDEL CHRISTOPHER ([id number]), editor trade journal TERRANCE LIVINGSTON ([id number]) on 04/01/2018 3:59:34 PM Referred By: Confirmed By:RAUDEL CHRISTOPHER
== END 2018-03-24 21:40 | disposition home or self-care (01) ==
LOC: ERS 16:04
DX: R00.2 Palpitations (principal); I10 Essential (primary) hypertension; I48.91 Unspecified atrial fibrillation; F41.9 Anxiety disorder, unspecified; Z79.899 Other long term (current) drug therapy
CPT/HCPCS: 36415; 71046; 80053; 81003; 81015; 82550; 84484; 85025; 93005; 96360; 96361; Q0162

== ENCOUNTER 2018-12-25 07:02 | Outpatient (CLI) | payer MEDICARE, OTHER ==
--- NOTE | 2018-12-25 13:42 | NM ---
RADIONUCLIDE GASTRIC EMPTYING SCAN: Date: 12/25/18 HISTORY: Nausea with vomiting, unspecified. RADIOPHARMACEUTICAL: 2 mCi technetium-99m sulfur colloid administered orally in scrambled eggs. FINDINGS: There is 52% emptying of the ingested gastric contents at 1 hour, 61% emptying at 2 hours, 77% emptyi ng at 3 hours, and 79% emptying at 4 hours. IMPRESSION: Delayed gastric emptying. POS: OFF
== END 2018-12-25 07:03 | disposition home or self-care (01) ==
LOC: NM 07:02
PROVIDERS: ATTEND Internal Medicine
DX: R13.10 Dysphagia, unspecified (principal); R11.2 Nausea with vomiting, unspecified; K30 Functional dyspepsia
CPT/HCPCS: 78264; A9541

== ENCOUNTER 2022-11-26 13:30 | Inpatient (IN) | payer MEDICARE ==
[2022-11-26 13:56] VITALS: BMI 33.3
[2022-11-26 14:29] LABS: Bilirubin Neg (Negative); Blood, Urine Negative (Negative); Clarity Clear (Clear); Glucose, Urine (Dipstick) Normal (Negative); Ketone, Urine Negative (Negative); Leukocyte 500 (Negative); Nitrite Negative (Negative); Protein, Urine (Dipstick) Negative (Neg-Trace); Specific Gravity, Urine 1.025 (1.005-1.030); Urobilinogen Normal mg/dL (Less than 2)
[2022-11-26 19:43] LABS: Hematocrit 40.9 % (36.0-47.0); Hemoglobin 13.1 g/dL (12.0-16.0); Mean Corpuscular Hemoglobin 31.1 pg (27.0-31.0); Mean Corpuscular Volume 97.1 fl (78.0-98.0); Mean Platelet Volume 11.1 fL (7.4-10.4); Platelet Count 246 10x3/uL (130-400); RBC Distribution Width 12.9 % (11.5-14.5); Red Blood Cell (RBC) Count 4.21 mill/uL (4.20-5.40); White Blood Cell (WBC) Count 6.7 10x3/uL (4.8-10.8)
[2022-11-26 19:58] LABS: INR-International Normal Ratio 1.2; PTT 28.2 sec (22.9-36.1); Prothrombin Time 15.1 sec (12.0-14.7)
[2022-11-26 20:05] LABS: ALT (SGPT) 12 U/L (8-55); AST (SGOT) 15 U/L (5-34); Albumin 4.1 g/dL (3.4-4.8); Alkaline Phosphatase 63 U/L (40-110); Anion Gap 16 mmol/L (10-20); BUN (Urea Nitrogen) 16 mg/dL (9.8-20.1); Bilirubin, Total 0.7 mg/dL (0.2-1.2); Calc. Creatinine Clearance 87 mL/min (70-130); Calcium 9.1 mg/dL (7.8-10.44); Carbon Dioxide 19 mmol/L (23-31); Chloride 109 mmol/L (98-107); Estimated GFR 74; Globulin 2.8 g/dL (2.4-3.5); Glucose 112 mg/dL (80-115); Potassium 4.7 mmol/L (3.5-5.1); Protein, Total 6.9 g/dL (5.8-8.1); Sodium 139 mmol/L (136-145)
[2022-12-01] MEDS ORDERED: Protamine Sulfate 50 MG/5 ML VIAL ONE (12:07)
[2022-12-01] MEDS ORDERED: Heparin 10,000 UNITS/ 10 ML VIAL ONE (12:07)
[2022-12-01] MEDS ORDERED: CEFAZOLIN 2 GM VIAL ONE (12:08)
[2022-12-01] MEDS ORDERED: Ondansetron PF 4 MG/2 ML Vial ONE ×2 (13:16→15:10)
[2022-12-01] MEDS ORDERED: Dexamethasone 20 MG/5 ML VIAL ONE (13:16)
[2022-12-01] MEDS ORDERED: PROPOFOL 200 MG/20 ML VIAL ONE (13:16)
[2022-12-01] MEDS ORDERED: Rocuronium Bromide 10 MG/ML (10ML VIAL) ONE (13:16)
[2022-12-01] MEDS ORDERED: Lidocaine 1% PF 5 ML VIAL ONE (13:16)
[2022-12-01] MEDS ORDERED: fentaNYL 50 mcg/mL 1 mL Vial ONE ×2 (13:18→15:10)
[2022-12-01] MEDS ORDERED: SUGAMMADEX SODIUM 200 MG/2 ML VIAL ONE (13:18)
== END 2022-12-01 18:33 | disposition home or self-care (01) | DRG 274 ==
LOC: SURG A 12-01 09:25 → EDSTATUS 12-01 13:30
PROVIDERS: ADMIT Internal Medicine Cardiovascular Disease; ATTEND Internal Medicine Cardiovascular Disease
PROC: 02L73DK Occlusion of Left Atrial Appendage with Intraluminal Device, Percutaneous Approach (ICD-10-PCS; principal; 2022-12-01)
PROC: B246ZZ4 Ultrasonography of Right and Left Heart, Transesophageal (ICD-10-PCS; 2022-12-01)
DX: I48.0 Paroxysmal atrial fibrillation (principal); Z00.6 Encounter for examination for normal comparison and control in clinical research program; Z86.73 Personal history of transient ischemic attack (TIA), and cerebral infarction without residual deficits; Z98.890 Other specified postprocedural states
CPT/HCPCS: 80053; 81003; 85027; 85347; 85610; 85730; 86850; 86900; 86901; 93005; 93010; 93306; 93312; C1759; C1760; C1894; J1100; J1644; J2405; J2704; J2720; J3010

== ENCOUNTER 2023-01-19 05:55 | Day surgery (SDC) | payer MEDICARE ==
[2023-01-17 13:07] VITALS: BMI 33.3
[2023-01-17 13:25] LABS: Hemoglobin 12.5 g/dL (12.0-15.5); Mean Corpuscular HGB CONC 32.1 g/dL (32.0-36.0); Mean Corpuscular Hemoglobin 30.2 pg (27.0-33.0); Mean Corpuscular Volume 94.2 fl (81.6-98.3); Platelet Count 230 10x3/uL (150-450); Red Blood Cell (RBC) Count 4.14 10x6/uL (3.90-5.03); White Blood Cell (WBC) Count 6.5 10x3/uL (3.5-10.5)
[2023-01-17 13:57] LABS: PTT 26.8 sec (22.0-33.0); Prothrombin Time 10.3 sec (9.5-12.1)
[2023-01-17 14:02] LABS: Anion Gap 14 mmol/L (10-20); BUN (Urea Nitrogen) 11 mg/dL (9.8-20.1); Calc. Creatinine Clearance 100 mL/min (70-130); Calcium 8.8 mg/dL (7.8-10.44); Carbon Dioxide 21 mmol/L (23-31); Chloride 111 mmol/L (98-107); Estimated GFR 87; Glucose 85 mg/dL (80-115); Potassium 4.2 mmol/L (3.5-5.1); Sodium 142 mmol/L (136-145)
[2023-01-19] MEDS ORDERED: PROPOFOL 40 ML ONE (08:11)
[2023-01-19] MEDS ORDERED: PROPOFOL 20 ML ONE (08:25)
== END 2023-01-19 09:44 | disposition home or self-care (01) ==
LOC: SDC 05:55
PROVIDERS: ATTEND Internal Medicine Cardiovascular Disease
PROC: B24BZZ4 Ultrasonography of Heart with Aorta, Transesophageal (ICD-10-PCS; principal; 2023-01-19)
DX: I48.19 Other persistent atrial fibrillation (principal); I51.7 Cardiomegaly
CPT/HCPCS: 80048; 85027; 85610; 85730; 93312; J2704

== ENCOUNTER 2023-09-19 05:39 | Day surgery (SDC) | payer MEDICARE ==
[2023-09-16 11:31] VITALS: BMI 33.1
[2023-09-19] MEDS ORDERED: Heparin 10,000 UNITS/ 10 ML VIAL ONE (06:22)
[2023-09-19] MEDS ORDERED: Midazolam HCl 2 mg/2 ml Vial ONE (07:01)
[2023-09-19] MEDS ORDERED: fentaNYL 50 mcg/mL 1 mL Vial ONE (07:01)
[2023-09-19] MEDS ORDERED: Iopamidol 370 76% 100 ML VIAL ONE (09:47)
== END 2023-09-19 13:00 | disposition home or self-care (01) ==
LOC: SDC 05:39
PROVIDERS: ATTEND Internal Medicine Cardiovascular Disease
PROC: 4A023N8 Measurement of Cardiac Sampling and Pressure, Bilateral, Percutaneous Approach (ICD-10-PCS; principal; 2023-09-19)
PROC: B20 Imaging, Heart, Plain Radiography (ICD-10-PCS; 2023-09-19)
DX: I35.0 Nonrheumatic aortic (valve) stenosis (principal); I48.0 Paroxysmal atrial fibrillation; I47.19 Other supraventricular tachycardia; I51.89 Other ill-defined heart diseases; I10 Essential (primary) hypertension; I48.3 Typical atrial flutter; Z95.0 Presence of cardiac pacemaker; Z79.01 Long term (current) use of anticoagulants; Z79.82 Long term (current) use of aspirin; Z79.899 Other long term (current) drug therapy; Z90.89 Acquired absence of other organs; Z98.890 Other specified postprocedural states; Z90.49 Acquired absence of other specified parts of digestive tract
CPT/HCPCS: 93460; C1751; C1769; C1894 ×2; J2250; J3010; 93456; 99152; 99153; J1644; Q9967

== ENCOUNTER 2023-09-28 07:25 | Day surgery (SDC) | payer MEDICARE ==
[2023-09-27 10:31] VITALS: BMI 34.3
[2023-09-28 08:17] LABS: #Basophils 0.07 10x3/uL (0.0-0.2); %Basophils 1.2 % (0.0-1.0); %Eosinophils 3.9 % (0.0-10.0); %Lymphocytes 28.1 % (21.0-51.0); %Monocytes 8.7 % (0.0-10.0); %Neutrophils 57.6 % (42.0-75.0); Hematocrit 37.7 % (36.0-47.0); Hemoglobin 12.4 g/dL (12.0-16.0); Mean Corpuscular HGB CONC 32.9 g/dL (32.0-36.0); Mean Corpuscular Hemoglobin 30.9 pg (27.0-31.0); Mean Platelet Volume 9.9 fL (7.4-10.4); Platelet Count 243 10x3/uL (130-400); RBC Distribution Width 12.8 % (11.5-14.5); Red Blood Cell (RBC) Count 4.01 mill/uL (4.20-5.40)
[2023-09-28 08:31] LABS: PTT 26.3 sec (22.9-36.1); Prothrombin Time 12.9 sec (12.0-14.7)
[2023-09-28 08:38] LABS: Anion Gap 15 mmol/L (10-20); BUN (Urea Nitrogen) 13 mg/dL (9.8-20.1); Calc. Creatinine Clearance 97 mL/min (70-130); Calcium 9.1 mg/dL (7.8-10.44); Carbon Dioxide 22 mmol/L (23-31); Chloride 109 mmol/L (98-107); Estimated GFR 84; Glucose 99 mg/dL (83-110); Potassium 3.7 mmol/L (3.5-5.1); Sodium 142 mmol/L (136-145)
[2023-09-28] MEDS ORDERED: ePHEDrine Sulfate 50 MG/10 ML VIAL ONE (09:40)
[2023-09-28] MEDS ORDERED: PROPOFOL 200 MG/20 ML VIAL ONE (09:58)
[2023-09-28] MEDS ORDERED: Lidocaine 1% PF 5 ML VIAL ONE (09:58)
== END 2023-09-28 12:05 | disposition home or self-care (01) ==
LOC: SDC 07:25
PROVIDERS: ATTEND Internal Medicine Cardiovascular Disease
PROC: B246ZZ4 Ultrasonography of Right and Left Heart, Transesophageal (ICD-10-PCS; principal; 2023-09-28)
DX: I48.91 Unspecified atrial fibrillation (principal); Z95.810 Presence of automatic (implantable) cardiac defibrillator; I51.7 Cardiomegaly
CPT/HCPCS: 80048; 85025; 85610; 85730; 93312; J2704; 36415

== ENCOUNTER 2024-02-28 12:51 | Outpatient (CLI) | payer MEDICARE ==
[2024-02-28 13:49] LABS: #Basophils 0.06 10x3/uL (0.0-0.2); %Eosinophils 2.8 % (0.0-10.0); %Monocytes 7.5 % (0.0-10.0); %Neutrophils 63.9 % (42.0-75.0); Hematocrit 42.4 % (36.0-47.0); Hemoglobin 13.6 g/dL (12.0-16.0); Mean Corpuscular HGB CONC 32.1 g/dL (32.0-36.0); Mean Corpuscular Hemoglobin 29.6 pg (27.0-31.0); Mean Corpuscular Volume 92.4 fL (78.0-98.0); Mean Platelet Volume 9.6 fL (7.4-10.4); Platelet Count 229 10x3/uL (130-400); RBC Distribution Width 12.9 % (11.5-14.5); Red Blood Cell (RBC) Count 4.59 mill/uL (4.20-5.40)
[2024-02-28 14:10] LABS: Anion Gap 14 mmol/L (10-20); BUN (Urea Nitrogen) 18 mg/dL (9.8-20.1); Calc. Creatinine Clearance 0 mL/min (70-130); Calcium 9.4 mg/dL (7.8-10.44); Carbon Dioxide 23 mmol/L (23-31); Chloride 108 mmol/L (98-107); Estimated GFR 89; Glucose 90 mg/dL (83-110); Potassium 3.8 mmol/L (3.5-5.1); Sodium 141 mmol/L (136-145)
[2024-02-28 14:40] LABS: Prothrombin Time 12.6 sec (12.0-14.7)
== END 2024-02-28 12:52 | disposition home or self-care (01) ==
LOC: LABBT 12:51
PROVIDERS: ATTEND Internal Medicine Cardiovascular Disease
DX: Z01.812 Encounter for preprocedural laboratory examination (principal); I48.0 Paroxysmal atrial fibrillation; K92.2 Gastrointestinal hemorrhage, unspecified
CPT/HCPCS: 80048; 85025; 85610; 85730

== ENCOUNTER 2024-03-07 06:10 | Day surgery (SDC) | payer MEDICARE ==
[2024-02-28 13:14] VITALS: BMI 33.7
[2024-03-07] MEDS ORDERED: Lidocaine 1% PF 5 ML VIAL ONE (08:15)
[2024-03-07] MEDS ORDERED: PROPOFOL 20 ML ONE (09:00)
== END 2024-03-07 10:13 | disposition home or self-care (01) ==
LOC: SDC 06:10
PROVIDERS: ATTEND Internal Medicine Cardiovascular Disease
PROC: B246ZZ4 Ultrasonography of Right and Left Heart, Transesophageal (ICD-10-PCS; principal; 2024-03-07)
DX: I48.0 Paroxysmal atrial fibrillation (principal); Z95.818 Presence of other cardiac implants and grafts
CPT/HCPCS: 93312; J2704

== ENCOUNTER 2024-08-22 05:51 | Day surgery (SDC) | payer MEDICARE ==
[2024-08-21 10:35] VITALS: BMI 34.3
[2024-08-22] MEDS ORDERED: PROPOFOL 200 MG/20 ML VIAL ONE (08:12)
== END 2024-08-22 09:35 | disposition home or self-care (01) ==
LOC: SDC 05:51
PROVIDERS: ATTEND Internal Medicine Cardiovascular Disease
PROC: B245ZZ4 Ultrasonography of Left Heart, Transesophageal (ICD-10-PCS; principal; 2024-08-22)
DX: I48.0 Paroxysmal atrial fibrillation (principal); I50.30 Unspecified diastolic (congestive) heart failure; Z79.82 Long term (current) use of aspirin
CPT/HCPCS: 93312; J2704